=== PATIENT | male | born 1975 | race Caucasian/White ===

== ENCOUNTER 2017-10-01 20:56 | Emergency (ER) | payer OTHER ==
[2017-10-01] MEDS ORDERED: Aspirin TAB* 325 MG PO ONE (21:16)
[2017-10-01] MEDS ORDERED: Nitroglycerin TAB 0.4 MG* 0.4 MG TAB SL PRN (21:16)
[2017-10-01 21:57] LABS: ABS Basophils 0 10^3/ul (0-0.2); ABS Eosinophils 0.1 10^3/ul (0-0.6); ABS Lymphocytes 1.7 10^3/ul (1.0-4.8); ABS Monocytes 0.8 10^3/ul (0-0.8); ABS Neutrophils 4.3 10^3/ul (1.5-7.7); ABS Nucleated RBC 0 10^3/ul; Eosinophil % 0.8 % (0-6); Hematocrit 41 % (42-52); Hemoglobin 14.1 g/dl (14.0-18.0); Lymphocyte % 25.1 % (25-47); Mean Corpuscular HGB Conc 35 g/dl (31-36); Mean Corpuscular Hemoglobin 30 pg (27-31); Mean Corpuscular Volume 88 fL (80-94); Mean Platelet Volume 8.2 um3 (7.4-10.4); Nucleated Red Blood Cells % 0; Platelet Count 171 10^3/ul (150-450); Red Blood Count 4.62 10^6/ul (4.0-5.4); Red Cell Distribution Width 13 % (10.5-15); White Blood Count 6.9 10^3/ul (3.5-10.8)
[2017-10-01 22:18] LABS: EGFR Non-African American 126.4 (>60)
[2017-10-01] MEDS ORDERED: Ketorolac INJ* 30 MG/ML 1 ML VIAL IV PUSH ONE (23:20)
[2017-10-02 02:18] VITALS: BP 159/96
--- NOTE | 2017-10-02 07:15 | RAD ---
INDICATION: Chest pain. COMPARISON: There are no prior studies available for comparison. TECHNIQUE: A portable view of the chest was obtained. FINDINGS: Cardiac and mediastinal contours appear to be within normal limits. The lungs are clear. No pleural effusion is seen. IMPRESSION: NO EVIDENCE FOR ACUTE DISEASE.
--- NOTE | 2017-10-02 17:20 | ED ---
Domingo Villalobos Stephanie, scribed for Tomás Cruz MD on 10/01/17 at 2128 . HPI Chest Pain - HPI Summary HPI Summary: The pt is a 42 y/o M presenting to the ED with c/o CP that began at 20:00 today. Symptoms include lightheadedness, ASH, L jaw and L arm pain. The CP is described as sharp and is located on the L upper chest. The pt denies nausea. Aggravating factors include deep breaths. The CP is rated as an 8 in severity. Pt incarcerated today and symptoms started shortly after arrival in longterm. - History of Current Complaint Chief Complaint: EDChestPainROMI Time Seen by Provider: 10/01/17 21:02 Hx Obtained From: Patient Onset/Duration: Started Hours Ago - 1, Still Present Timing: Constant Current Severity: Moderate Pain Intensity: 8 Pain Scale Used: 0-10 Numeric Chest Pain Location: Left Anterior Chest Pain Radiates: Yes Chest Pain Radiates To:: Arm - L, Jaw - L Character: Sharp/Stabbing Aggravating Factor(s): Deep Breaths Alleviating Factor(s): Nothing Associated Signs and Symptoms: Positive: Headaches, Lightheadedness. Negative: Nausea - Allergy/Home Medications Allergies/Adverse Reactions: Allergies Allergy/AdvReac Type Severity Reaction Status Date / Time acetaminophen Allergy Swelling Verified 10/01/17 21:12 hydrocodone Allergy Hives Verified 10/01/17 21:12 Latex, Natural Rubber Allergy Hives Verified 10/01/17 21:12 meclizine Allergy Hives Verified 10/01/17 21:12 neomycin Allergy See Comment Verified 10/01/17 21:12 oxycodone Allergy Hives Verified 10/01/17 21:12 promethazine [From Phenergan] Allergy Swelling Verified 10/01/17 21:12 rifampin Allergy See Comment Verified 10/01/17 21:12 Sulfa (Sulfonamide Allergy See Comment Verified 10/01/17 21:12 Antibiotics) tamsulosin [From Flomax] Allergy See Comment Verified 10/01/17 21:12 tramadol [From Ultram] Allergy Hives Verified 10/01/17 21:12 Home Medications: Home Medications Albuterol Sulfate [Proventil Hfa] 108 mcg IN DAILY 10/01/17 [History Confirmed 10/01/17] Aspirin EC Low Dose* [Ecotrin EC Low Dose 81 MG*] 81 mg PO DAILY 10/01/17 [ History Confirmed 10/01/17] Atorvastatin* [Lipitor*] 10 mg PO BEDTIME 10/01/17 [History Confirmed 10/01/17] Fluticasone-Salmeterol 100-50* [Advair Diskus 100-50*] 1 puff INH BID 10/01/17 [ History Confirmed 10/01/17] Metoprolol Tartrate TAB* [Lopressor TAB*] 50 mg PO QAM 10/01/17 [History Confirmed 10/01/17] Mirtazapine TAB* [Remeron TAB*] 45 mg PO BEDTIME 10/01/17 [History Confirmed ] Prazosin CAP* [Minipress CAP*] 2 mg PO BEDTIME 10/01/17 [History Confirmed 10/01] Sucralfate TAB* [Carafate*] 1 gm PO QID 10/01/17 [History Confirmed 10/01/17] busPIRone TAB* [Buspar *] 20 - 30 mg PO BID 10/01/17 [History Confirmed 10/01/17 ] hydrOXYzine HCL TAB* [Atarax TAB 50 MG *] 100 mg PO BEDTIME 10/01/17 [History Confirmed 10/01/17] PMH/Surg Hx/FS Hx/Imm Hx Cardiovascular History: Reports: Hx Coronary Artery Disease, Hx Deep Vein Thrombosis, Hx Myocardial Infarction Musculoskeletal History: Reports: Other Musculoskeletal History - spinal stenosis Neurological History: Reports: Hx CVA, Hx Transient Ischemic Attacks (TIA) - Surgical History Surgery Procedure, Year, and Place: appendectomy, foot surgery Infectious Disease History: No Infectious Disease History: Denies: Traveled Outside the [place] in Last 30 Days - Family History Known Family History: Positive: Other - malignant hypothermia - Social History Occupation: Unemployed Lives: Halfway - correctional facility Review of Systems Negative: Fever Positive: Chest Pain - radiates to L jaw and L arm Negative: Nausea Neurological: Other - lightheadedness Positive: Headache All Other Systems Reviewed And Are Negative: Yes Physical Exam - Summary Physical Exam Summary: Appearance: Well-appearing, no distress, Well-nourished Skin: Warm, color reflects adequate perfusion Head: Normal Head/Face inspection Eyes: Conjunctiva clear ENT: Normal inspection Neck: Supple, no nodes, no JVD. Respiratory: Lungs clear, Normal breath sounds, no respiratory distress Cardio: RRR, No murmur, pulses normal, brisk capillary refill Abdomen: soft, nontender, no guarding, no rebound Bowel sounds: present Musculoskeletal: Strength Intact/ ROM intact. No calf tenderness. No edema. Neuro: Alert, muscle tone normal, facial symmetry, speech normal, sensory/motor intact Psychological: Normal Triage Information Reviewed: Yes Vital Signs On Initial Exam: Initial Vitals Temp Pulse Resp BP Pulse Ox 99.2 F 70 17 155/113 97 10/01/17 21:04 10/01/17 21:04 10/01/17 21:04 10/01/17 21:04 10/01/17 21:04 Vital Signs Reviewed: Yes Diagnostics - Vital Signs Vital Signs Temp Pulse Resp BP Pulse Ox 10/01/17 21:04 99.2 F 70 17 155/113 97 - Laboratory Lab Results: Lab Results 10/01/17 10/01/17 10/01/17 Range/Units 21:46 21:46 21:46 WBC 6.9 (3.5-10.8) 10^3/ul RBC 4.62 (4.0-5.4) 10^6/ul Hgb 14.1 (14.0-18.0) g/dl Hct 41 L (42-52) % MCV 88 (80-94) fL MCH 30 (27-31) pg MCHC 35 (31-36) g/dl RDW 13 (10.5-15) % Plt Count 171 (150-450) 10^3/ul MPV 8.2 (7.4-10.4) um3 Neut % (Auto) 61.9 (38-83) % Lymph % (Auto) 25.1 (25-47) % Summers % (Auto) 11.6 H (0-7) % Eos % (Auto) 0.8 (0-6) % Baso % (Auto) 0.6 (0-2) % Absolute Neuts (auto) 4.3 (1.5-7.7) 10^3/ul Absolute Lymphs (auto) 1.7 (1.0-4.8) 10^3/ul Absolute Monos (auto) 0.8 (0-0.8) 10^3/ul Absolute Eos (auto) 0.1 (0-0.6) 10^3/ul Absolute Basos (auto) 0 (0-0.2) 10^3/ul Absolute Nucleated RBC 0 10^3/ul Nucleated RBC % 0 Sodium 138 (133-145) mmol/L Potassium 4.0 (3.5-5.0) mmol/L Chloride 103 (101-111) mmol/L Carbon Dioxide 28 (22-32) mmol/L Anion Gap 7 (2-11) mmol/L BUN 10 (6-24) mg/dL Creatinine 0.69 (0.67-1.17) mg/dL Est GFR ( Amer) 162.5 (>60) Est GFR (Non-Af Amer) 126.4 (>60) BUN/Creatinine Ratio 14.5 (8-20) Glucose 108 H (70-100) mg/dL Calcium 9.9 (8.6-10.3) mg/dL Total Bilirubin 0.40 (0.2-1.0) mg/dL AST 19 (13-39) U/L ALT 31 (7-52) U/L Alkaline Phosphatase 67 (34-104) U/L Troponin I 0.00 (<0.04) ng/mL B-Natriuretic Peptide 15 ( - 100) pg/mL Total Protein 6.9 (6.4-8.9) g/dL Albumin 4.4 (3.2-5.2) g/dL Globulin 2.5 (2-4) g/dL Albumin/Globulin Ratio 1.8 (1-3) Result Diagrams: 10/01/17 21:46 10/01/17 21:46 Lab Statement: Any lab studies that have been ordered have been reviewed, and results considered in the medical decision making process. - Radiology CXR Xray Interpretation: No Acute Changes Radiology Interpretation Completed By: ED Physician - No acute disease process. Radiologist report pending. - EKG 21:00 Cardiac Rate: NL EKG Rhythm: Sinus Rhythm - 68 BPM EKG Interpretation: short MS interval, axis nml, no ST changes, T wave nml Re-Evaluation - Re-Evaluation First Eval Re-Evaluation Time: 23:20 Change: Worse Comment: Pt resting comfortably in bed. Pt states chest pain worsened. Will give dose IV analgesia and reevaluate. Second Eval Re-Evaluation Time: 01:40 Change: Improved Comment: Pt chest pain resolved. pt HEART score - 1; pt with atypical symptoms. pt will f/u wiht Cardiology as scheduled. Chest Pain Course/Dx - Course Assessment/Plan: pt with atypical chest with negative cardiac w/u. Plan for symptomatic tx and Cardiology f/u as outpt. - Chest Pain Differential Diagnosis/HQI/PQRI: Acute OH, ACS, Angina, Aortic Aneurysm, CHF, Pulmonary Edema, Pulmonary Embolism - Diagnoses Provider Diagnoses: Atypical chest pain Discharge - Sign-Out/Discharge Documenting (check all that apply): Discharge - Discharge Plan Condition: Improved Disposition: HOME Patient Education Materials: Chest Pain (ED) Referrals: Jeromy BOOGIE,Luis Silverman [Primary Care Provider] - 3 Days - Billing Disposition and Condition Condition: IMPROVED Disposition: HOME The documentation as recorded by the Domingo montiel Stephanie accurately reflects the service I personally performed and the decisions made by , Tomás Cruz MD.
== END 2017-10-02 02:18 | disposition home or self-care (01) ==
LOC: EDBD → ED 20:56
DX: R07.89 Other chest pain (principal); I25.10 Atherosclerotic heart disease of native coronary artery without angina pectoris; R51 Headache; R42 Dizziness and giddiness; Z95.5 Presence of coronary angioplasty implant and graft
CPT/HCPCS: 36415; 71045; 80053; 83880; 84484; 85025; 93005; 96374; 99283; J1885

== ENCOUNTER 2017-10-07 12:14 | Inpatient (IN) | payer MEDICAID, OTHER ==
[2017-10-07] MEDS ORDERED: Ondansetron INJ* 2 MG/ML VIAL IV ONE ×2 (12:39→16:15)
[2017-10-07] MEDS ORDERED: Morphine INJ* 4 MG/ML 1 ML SYRINGE (NEW SYRINGE VERSION) IV ONE (12:39)
[2017-10-07] MEDS ORDERED: NS 0.9% 1000 ML* 1,000 ML IV SCH (12:45)
--- NOTE | 2017-10-07 13:08 | RAD ---
INDICATION: Chest pain in a patient with a history of GA COMPARISON: Similar chest x-ray October 01, 2017 TECHNIQUE: Single AP portable view of the chest was obtained. FINDINGS: Image quality is compromised due to the relative inferiority of a portable chest x-ray. The heart and mediastinum exhibit normal size and contour. The lungs are grossly clear. There is no evidence of a large pleural effusion. Visualized bones are normal for the patient's age. IMPRESSION: No radiographic evidence for acute cardiopulmonary abnormality on this portable chest x-ray.
[2017-10-07 13:57] LABS: ABS Basophils 0 10^3/ul (0-0.2); ABS Eosinophils 0 10^3/ul (0-0.6); ABS Lymphocytes 0.7 10^3/ul (1.0-4.8); ABS Monocytes 0.9 10^3/ul (0-0.8); ABS Neutrophils 10.8 10^3/ul (1.5-7.7); ABS Nucleated RBC 0 10^3/ul; Eosinophil % 0 % (0-6); Hematocrit 38 % (42-52); Hemoglobin 12.6 g/dl (14.0-18.0); Mean Corpuscular HGB Conc 33 g/dl (31-36); Mean Corpuscular Hemoglobin 30 pg (27-31); Mean Corpuscular Volume 90 fL (80-94); Mean Platelet Volume 8.3 um3 (7.4-10.4); Nucleated Red Blood Cells % 0; Platelet Count 151 10^3/ul (150-450); Red Blood Count 4.23 10^6/ul (4.0-5.4); Red Cell Distribution Width 14 % (10.5-15); White Blood Count 12.4 10^3/ul (3.5-10.8)
[2017-10-07 14:10] LABS: EGFR Non-African American 160.8 (>60)
[2017-10-07] MEDS ORDERED: Iohexol 350* (CONTRAST) 500 ML MDV IV ONE (14:14)
--- NOTE | 2017-10-07 15:20 | RAD ---
CPT II: CPT II Codes: 6045F INDICATION: Head and neck pain in a patient reported to have "heart problem" COMPARISON: None TECHNIQUE: A CT angiogram of the head and neck was performed with 80 cc of Omnipaque 350. Contiguous axial sections were obtained from the thoracic inlet through the ho-chunk of Torres. Images were reconstructed in the sagittal, coronal planes and in a 3-D volume rendered format. The distal cervical internal carotid artery diameter is used as the denominater for stenosis measurement. CTA NECK: The common and internal carotid arteries are patent without hemodynamically significant stenosis. Right: Below the right carotid bulb the common carotid artery measures 8 mm in diameter. The carotid bulb measures 8 mm in short axis diameter. This yields 0% degree stenosis. There is no significant atherosclerosis of the carotid bulb. Left: Below the left carotid bulb the common carotid artery measures 9 mm in diameter. The carotid bulb measures 9 mm in short axis diameter. This yields 0% degree stenosis. There is no significant atherosclerosis of the carotid bulb. The vertebral arteries are patent without gross abnormality. CTA of the brain: The internal carotid, anterior and middle cerebral arteries appear are patent without high grade stenosis or occlusion. The vertebral, basilar and posterior cerebral arteries appear patent without high grade stenosis or occlusion. The ho-chunk of Torres is complete with bilateral posterior communicating arteries identified. No focal luminal filling defect, aneurysm or vascular malformation is seen. NON-ARTERIAL FINDINGS: There is nonspecific straightening of the normal cervical lordosis. The vertebral bodies and facet joints are otherwise appropriately aligned. IMPRESSION: Normal CT angiography of the head and neck.
--- NOTE | 2017-10-07 15:23 | RAD ---
HISTORY: Chest pain, history of Marfan syndrome COMPARISONS: None TECHNIQUE: Multiple contiguous axial CT scans of the chest were obtained after the administration of nonionic intravenous contrast, timed to the systemic arterial phase of contrast enhancement.. Coronal and sagittal multiplanar reformations are also submitted for review. 3-D volumetric reconstructions of the aorta are also submitted for review. FINDINGS: Evaluation is limited by suboptimal contrast opacification. NECK AND THYROID: The lower neck and thyroid are unremarkable. CHEST WALL: There is no lower cervical, axillary, or supraclavicular lymphadenopathy by size criteria. HEART AND PERICARDIUM: The heart is unremarkable. AORTA AND PULMONARY VASCULATURE: The aorta and pulmonary vasculature are normal for technique. There is no interstitial dilatation. There is no intimal flap to suggest dissection. There is no periaortic hematoma. While there is no obvious pulmonary arterial filling defect, the attenuation of the main pulmonary artery does not reach diagnostic criteria for detection of pulmonary blood.. MEDIASTINUM: There is no mediastinal lymphadenopathy by size criteria. KATHERINE: There is no hilar lymphadenopathy by size criteria. AIRWAY AND ESOPHAGUS: The airway is unremarkable, without endobronchial filling defect. The esophagus is grossly normal. LUNG PARENCHYMA: There is a 0.4 cm nodule of the left upper lobe on axial image 37. PLEURA: No pleural abnormalities are noted. UPPER ABDOMEN: The upper abdomen is unremarkable. BONES AND SOFT TISSUES: Mild degenerative changes are noted. OTHER: None. IMPRESSION: 1. NO AORTIC ANEURYSMAL DILATATION, INTIMAL FLAP, OR PERIAORTIC HEMATOMA. 2. THERE IS A 0.4 CM NODULE OF THE LEFT UPPER LOBE. THE RECOMMENDATIONS FOR FOLLOWUP AND MANAGEMENT OF AN INCIDENTALLY DETECTED PULMONARY NODULE LESS THAN 6 MM IN SIZE, IN A PATIENT WITHOUT A HISTORY OF MALIGNANCY, INCLUDE NO FOLLOWUP FOR A LOW-RISK PATIENT OR OPTIONAL FOLLOWUP CT IN 12 MONTHS FOR A HIGH RISK PATIENT. NOTES: SIZE = AVERAGE LENGTH AND WIDTH; HIGH RISK IS DEFINED A HISTORY OF SMOKING OR OTHER KNOW RISK FACTORS FOR LUNG CANCER; LOW RISK IS DEFINED MINIMAL OR ABSENT HISTORY OF SMOKING OR OTHER KNOWN RISK FACTORS. Katty Alva, MACHO Zapien, ROLANDO Rey, et al (2017) "Guidelines for Management of Incidental Pulmonary Nodules Detected on CT Images: From the Fleischner Society 2017." Radiology; 284(1): 228-243. doi:10.1148/radiol.4524787350 .
[2017-10-07] MEDS ORDERED: Morphine INJ* 2 MG/ML 1 ML CARPUJECT IV ONE (16:09)
[2017-10-07] MEDS ORDERED: Magnesium Sulfate 2 GM IV* 2 GM/50 ML BAG IVPB ONE (16:09)
[2017-10-07] MEDS ORDERED: Morphine INJ* 2 MG/ML 1 ML CARPUJECT ONE (16:10)
[2017-10-07] MEDS ORDERED: Potassium Chlor TAB* 20 MEQ TAB.ER PO ONE (16:10)
[2017-10-07] MEDS ORDERED: NS 0.9% 1000 ML* 2,000 ML IV ONE (16:10)
[2017-10-07] MEDS ORDERED: Ondansetron INJ* 2 MG/ML VIAL ONE (16:10)
[2017-10-07] MEDS ORDERED: Nitroglycerin 2% OINT* 1 GM PAK ONE (16:44)
[2017-10-07] MEDS ORDERED: Nitroglycerin 2% OINT* 1 GM PAK TOPICAL ONE (16:50)
[2017-10-07] MEDS ORDERED: Metoprolol Tartrate IV* 1 MG/ML 5 ML VIAL IV PRN (16:55)
[2017-10-07] MEDS ORDERED: Potassium Chloride IV* 40 MEQ in NS 0.9% 250 ML* 250 ML IVPB ONE (17:00)
[2017-10-07] MEDS ORDERED: KCL 10 MEQ/50 ML IVPREMIX* 10 MEQ/50 ML BAG IV SCH (17:00)
--- NOTE | 2017-10-07 17:27 | ED ---
Haryr Villalobos Gabriel, scribed for Jim Baird MD on 10/07/17 at 1243 . HPI Chest Pain - HPI Summary HPI Summary: This patient is a 42 year old M presenting to [facility] from [facility] accompanied by the retirement guards with a chief complaint of CP since 1000 this morning. The patient rates the pain 8/10 in severity and states it radiates into his arm and neck. Patient reports nausea, dizziness, light headed, ASH, diaphoresis, left leg edema and pain. Patient denies ABD pain. Pt has taken 4 baby ASA and 3 NTG with no relief. Hx CVA, 2 MIs, TIA, and DVT. - History of Current Complaint Chief Complaint: EDChestPainROMI Time Seen by Provider: 10/07/17 12:29 Hx Obtained From: Patient Onset/Duration: Started Hours Ago Time of Onset: 10:00 Initial Severity: Moderate Current Severity: Moderate Pain Intensity: 8 Pain Scale Used: 0-10 Numeric Chest Pain Location: Diffuse Chest Pain Radiates: Yes Chest Pain Radiates To:: Arm, Neck Alleviating Factor(s): Nothing Associated Signs and Symptoms: Positive: Negative - ABD pain, Other: - nausea, dizziness, light headed, ASH, diaphoresis, left leg edema and pain - Allergy/Home Medications Allergies/Adverse Reactions: Allergies Allergy/AdvReac Type Severity Reaction Status Date / Time acetaminophen Allergy Swelling Verified 10/01/17 21:12 hydrocodone Allergy Hives Verified 10/01/17 21:12 Latex, Natural Rubber Allergy Hives Verified 10/01/17 21:12 meclizine Allergy Hives Verified 10/01/17 21:12 neomycin Allergy See Comment Verified 10/01/17 21:12 oxycodone Allergy Hives Verified 10/01/17 21:12 promethazine [From Phenergan] Allergy Swelling Verified 10/01/17 21:12 rifampin Allergy See Comment Verified 10/01/17 21:12 Sulfa (Sulfonamide Allergy See Comment Verified 10/01/17 21:12 Antibiotics) tamsulosin [From Flomax] Allergy See Comment Verified 10/01/17 21:12 tramadol [From Ultram] Allergy Hives Verified 10/01/17 21:12 PMH/Surg Hx/FS Hx/Imm Hx Cardiovascular History: Reports: Hx Coronary Artery Disease, Hx Deep Vein Thrombosis, Hx Myocardial Infarction Musculoskeletal History: Reports: Other Musculoskeletal History - spinal stenosis Neurological History: Reports: Hx CVA, Hx Transient Ischemic Attacks (TIA) - Surgical History Surgery Procedure, Year, and Place: appendectomy, foot surgery Infectious Disease History: No Infectious Disease History: Denies: Traveled Outside the [place] in Last 30 Days - Family History Known Family History: Positive: Other - malignant hypothermia Negative: Respiratory Disease, Seizure Disorder - Social History Occupation: Unemployed Lives: Shelter - retirement Alcohol Use: None Substance Use Type: Reports: None Smoking Status (MU): Former Smoker Review of Systems Positive: Skin Diaphoresis Positive: Nausea. Negative: Abdominal Pain Positive: Edema - LLE and pain Neurological: Other - dizziness and light headedness Positive: Headache All Other Systems Reviewed And Are Negative: Yes Physical Exam - Summary Physical Exam Summary: General: well-appearing, no pain distress Skin: warm, color reflects adequate perfusion, dry Head: normal Eyes: EOMI, RYAN ENT: normal Neck: supple, nontender Respiratory: CTA, breath sounds present Cardiovascular: RRR Abdomen: soft, nontender Bowel: present Musculoskeletal: normal, strength/ROM intact Neurological: normal, sensory/motor intact, A&O x3 Psychological: affect/mood appropriate Triage Information Reviewed: Yes Vital Signs On Initial Exam: Initial Vitals Temp Pulse Resp BP Pulse Ox 99.2 F 111 21 135/86 97 10/07/17 12:25 10/07/17 12:25 10/07/17 12:25 10/07/17 12:25 10/07/17 12:25 Vital Signs Reviewed: Yes Diagnostics - Vital Signs Vital Signs Temp Pulse Resp BP Pulse Ox 10/07/17 12:25 99.2 F 111 21 135/86 97 - Laboratory Lab Results: Lab Results 10/07/17 10/07/17 10/07/17 Range/Units 13:40 13:40 13:40 WBC (3.5-10.8) 10^3/ul RBC (4.0-5.4) 10^6/ul Hgb (14.0-18.0) g/dl Hct (42-52) % MCV (80-94) fL MCH (27-31) pg MCHC (31-36) g/dl RDW (10.5-15) % Plt Count (150-450) 10^3/ul MPV (7.4-10.4) um3 Neut % (Auto) (38-83) % Lymph % (Auto) (25-47) % Whiteside % (Auto) (0-7) % Eos % (Auto) (0-6) % Baso % (Auto) (0-2) % Absolute Neuts (auto) (1.5-7.7) 10^3/ul Absolute Lymphs (auto) (1.0-4.8) 10^3/ul Absolute Monos (auto) (0-0.8) 10^3/ul Absolute Eos (auto) (0-0.6) 10^3/ul Absolute Basos (auto) (0-0.2) 10^3/ul Absolute Nucleated RBC 10^3/ul Nucleated RBC % INR (Anticoag Therapy) 1.10 H (0.77-1.02) APTT 25.5 L (26.0-36.3) seconds D-Dimer, Quantitative < 200 (Less Than 230) ng/mL Sodium 141 (139-145) mmol/L Potassium 2.8 L (3.5-5.0) mmol/L Chloride 106 (101-111) mmol/L Carbon Dioxide 25 (22-32) mmol/L Anion Gap 10 (2-11) mmol/L BUN 10 (6-24) mg/dL Creatinine 0.56 L (0.67-1.17) mg/dL Est GFR ( Amer) 206.8 (>60) Est GFR (Non-Af Amer) 160.8 (>60) BUN/Creatinine Ratio 17.9 (8-20) Glucose 124 H (70-100) mg/dL Lactic Acid (0.5-2.0) mmol/L Calcium 8.6 (8.6-10.3) mg/dL Magnesium 1.6 L (1.9-2.7) mg/dL Total Bilirubin 0.20 (0.2-1.0) mg/dL AST 20 (13-39) U/L ALT 25 (7-52) U/L Alkaline Phosphatase 55 (34-104) U/L Total Creatine Kinase 186 (10-223) U/L CK-MB (CK-2) 1.5 (0.6-6.3) ng/mL Troponin I 0.00 (<0.04) ng/mL C-Reactive Protein 3.92 (< 5.00) mg/L B-Natriuretic Peptide 26 ( - 100) pg/mL Total Protein 5.9 L (6.4-8.9) g/dL Albumin 3.6 (3.2-5.2) g/dL Globulin 2.3 (2-4) g/dL Albumin/Globulin Ratio 1.6 (1-3) Lipase 25 (11.0-82.0) U/L TSH 1.82 (0.34-5.60) mcIU/mL Blood Type Antibody Screen 10/07/17 10/07/17 10/07/17 Range/Units 13:40 13:40 13:40 WBC 12.4 H (3.5-10.8) 10^3/ul RBC 4.23 (4.0-5.4) 10^6/ul Hgb 12.6 L (14.0-18.0) g/dl Hct 38 L (42-52) % MCV 90 (80-94) fL MCH 30 (27-31) pg MCHC 33 (31-36) g/dl RDW 14 (10.5-15) % Plt Count 151 (150-450) 10^3/ul MPV 8.3 (7.4-10.4) um3 Neut % (Auto) 86.9 H (38-83) % Lymph % (Auto) 6.0 L (25-47) % Whiteside % (Auto) 6.9 (0-7) % Eos % (Auto) 0 (0-6) % Baso % (Auto) 0.2 (0-2) % Absolute Neuts (auto) 10.8 H (1.5-7.7) 10^3/ul Absolute Lymphs (auto) 0.7 L (1.0-4.8) 10^3/ul Absolute Monos (auto) 0.9 H (0-0.8) 10^3/ul Absolute Eos (auto) 0 (0-0.6) 10^3/ul Absolute Basos (auto) 0 (0-0.2) 10^3/ul Absolute Nucleated RBC 0 10^3/ul Nucleated RBC % 0 INR (Anticoag Therapy) (0.77-1.02) APTT (26.0-36.3) seconds D-Dimer, Quantitative (Less Than 230) ng/mL Sodium (139-145) mmol/L Potassium (3.5-5.0) mmol/L Chloride (101-111) mmol/L Carbon Dioxide (22-32) mmol/L Anion Gap (2-11) mmol/L BUN (6-24) mg/dL Creatinine (0.67-1.17) mg/dL Est GFR ( Amer) (>60) Est GFR (Non-Af Amer) (>60) BUN/Creatinine Ratio (8-20) Glucose (70-100) mg/dL Lactic Acid 3.9 H* (0.5-2.0) mmol/L Calcium (8.6-10.3) mg/dL Magnesium (1.9-2.7) mg/dL Total Bilirubin (0.2-1.0) mg/dL AST (13-39) U/L ALT (7-52) U/L Alkaline Phosphatase (34-104) U/L Total Creatine Kinase (10-223) U/L CK-MB (CK-2) (0.6-6.3) ng/mL Troponin I (<0.04) ng/mL C-Reactive Protein (< 5.00) mg/L B-Natriuretic Peptide ( - 100) pg/mL Total Protein (6.4-8.9) g/dL Albumin (3.2-5.2) g/dL Globulin (2-4) g/dL Albumin/Globulin Ratio (1-3) Lipase (11.0-82.0) U/L TSH (0.34-5.60) mcIU/mL Blood Type A Negative Antibody Screen Negative Result Diagrams: 10/07/17 13:40 10/07/17 13:40 Lab Statement: Any lab studies that have been ordered have been reviewed, and results considered in the medical decision making process. - Radiology CXR Radiology Interpretation Completed By: Radiologist - No radiographic evidence for acute cardiopulmonary abnormality on this portable chest x-ray. ED physician has reviewed this radiology report. - CT CTA Chest CT Interpretation Completed By: Radiologist - 1. NO AORTIC ANEURYSMAL DILATATION, INTIMAL FLAP, OR PERIAORTIC HEMATOMA. 2. THERE IS A 0.4 CM NODULE OF THE LEFT UPPER LOBE. THE RECOMMENDATIONS FOR FOLLOWUP AND MANAGEMENT OF AN INCIDENTALLY DETECTED PULMONARY NODULE LESS THAN 6 MM IN SIZE, IN A PATIENT WITHOUT A HISTORY OF MALIGNANCY, INCLUDE NO FOLLOWUP FOR A LOW-RISK PATIENT OR OPTIONAL FOLLOWUP CT IN 12 MONTHS FOR A HIGH RISK PATIENT. NOTES: SIZE = AVERAGE LENGTH AND WIDTH; HIGH RISK IS DEFINED A HISTORY OF SMOKING OR OTHER KNOW RISK FACTORS FOR LUNG CANCER; LOW RISK IS DEFINED MINIMAL OR ABSENT HISTORY OF SMOKING OR OTHER KNOWN RISK FACTORS. ED physician reviewed this radiology report. CTA Head/Neck CT Interpretation: No Acute Changes - Normal CT angiography of the head and neck. ED physician reviewed this radiology report. CT Interpretation Completed By: Radiologist - EKG 1218 Cardiac Rate: Tachycardia EKG Rhythm: Sinus Tachycardia - at 108 BPM Ectopy: None EKG Interpretation: ST depression in the lateral leads Chest Pain Course/Dx - Course Assessment/Plan: Medications reviewed. Allergies noted. BP noted and advised to follow up with PCP. - Diagnoses Provider Diagnoses: Chest pain Discharge - Sign-Out/Discharge Documenting (check all that apply): Discharge - Discharge Plan Condition: Good Disposition: ADMITTED TO [facility] - Billing Disposition and Condition Condition: GOOD Disposition: [facility] [place] The documentation as recorded by the Harry montiel Gabriel accurately reflects the service I personally performed and the decisions made by , Jim Baird MD.
[2017-10-07] MEDS: Sucralfate TAB* 1 GM PO SCH ×2 (18:33→21:07)
[2017-10-07] MEDS: NS 0.9% w/ 20 Meq KCL 1000 ML* 1,000 ML IV SCH (18:37)
[2017-10-07] MEDS ORDERED: Ondansetron INJ* 2 MG/ML VIAL IV SCH (19:00)
[2017-10-07] MEDS: Mometasone/Formoter 100/5 MDI INH SCH (19:27)
[2017-10-07] MEDS ORDERED: Nitro Patch/OINT Remove PATCH OFF SCH (20:00)
[2017-10-07] MEDS: Morphine INJ* 4 MG/ML 1 ML SYRINGE (NEW SYRINGE VERSION) IV PRN (21:06)
[2017-10-07] MEDS: Ondansetron INJ* 2 MG/ML VIAL IV PRN (21:07)
[2017-10-07] MEDS: Mirtazapine TAB* 15 MG PO SCH (21:07)
[2017-10-07] MEDS: Atorvastatin* 10 MG TAB PO SCH (21:07)
[2017-10-07] MEDS: busPIRone TAB* 10 MG PO SCH (21:07)
[2017-10-07] MEDS: hydrOXYzine HCL TAB* 50 MG PO SCH (21:07)
[2017-10-07] MEDS: Prazosin CAP* 1 MG PO SCH (21:07)
--- NOTE | 2017-10-07 21:15 | HP ---
ADMISSION HISTORY AND PHYSICAL: DATE OF ADMISSION: 10/07/17 PRIMARY CARE PHYSICIAN: Clinic at [facility]. MY ATTENDING FOR TODAY: Lady Doty DO HISTORY OF PRESENT ILLNESS: This is a 42-year-old male patient, an inmate at [facility], with very significant cardiac history. The patient has had IL x2 most recently in 2005 and 2014. He also had CVA in July of 2017, TIA in the past, most recently in 2015, 2016, heart failure and coronary artery disease. The patient has... DICTATION ENDS ABRUPTLY HERE HEAVENLY RON, [employer]PER[employer] [id number]/CPS #: [id number] EUN
--- NOTE | 2017-10-07 21:41 | HP ---
ADMISSION HISTORY AND PHYSICAL: DATE OF ADMISSION: 10/07/17 PRIMARY CARE PHYSICIAN: Clinic at [facility]. ATTENDING PHYSICIAN FOR TODAY: Dr. Lady Doty.* (DICTATED BY HEAVELNY RON NP) HISTORY OF PRESENT ILLNESS: This is a 42-year-old male patient with a history of Marfan syndrome. The patient reports having two SC's, one in 2005 and one in 2014; CVA in July of 2017; TIA x2, one in 2015 and one in 2016; diagnosed with heart failure when he was initially diagnosed with Marfan syndrome at age 13; has coronary artery disease; history of asthma; DVT in November of 2014; patent foramen ovale diagnosed on his last echocardiogram; diverticulosis; spinal stenosis; anxiety; PTSD, degenerative disk disease; osteoarthritis. The patient presented with complaint of chest pain this morning radiating up to the left jaw. The patient states yesterday he felt like he had fever and chills and went to bed early. He just had some general malaise, but then woke up this morning with chest pain, sharp in nature and again radiating to the jaw. He was brought in by EMS services. He had 2 nitro at the clinic at the care home with no relief, he had an additional nitro and 324 of aspirin with paramedics on the way to the emergency department, still with no relief. CAT scan of the chest reveals he was not having a dissection. Structures are intact , he does not appear to have pleural effusion. However, the patient still is having persistent chest pain at this point. His EKG reveals significant amount of ST-segment depression. He is depressed in leads II, III, and aVF diffusely. Also, has some flattening in the anterolateral leads as well. First troponin was negative at 0.00. The patient received 2 mg of morphine, 4 mg of Zofran as well for his refractory chest pain, and is also placed on oxygen 2 L. Pain remained persistent since arriving at the emergency department. MEDICATIONS: At home, include: 1. Aspirin 81 mg daily. 2. Metoprolol 50 mg daily. 3. Lipitor 10 mg daily. 4. Ventolin 1 puff 2 times a day. 5. Carafate 1 g 4 times a day. 6. Prazosin 2 mg daily. 7. Remeron 45 mg daily. 8. Vistaril 100 mg q.h.s. 9. BuSpar 20 mg 2 times a day. DIAGNOSTIC STUDIES/LAB DATA: Laboratories showed some other abnormalities; WBCs were 12.4, RBCs 4.23, hemoglobin 12.6, hematocrit 38, and platelets 151. He does appear to have a left shift. Sodium 141, potassium 2.8, chloride 106, carbon dioxide 25, BUN 10, creatinine 0.56, GFR is 160.8, glucose 124, lactic acid 3.9, calcium 8.6, mag 1.6. Total bilirubin 0.20, AST 20, ALT 25, alk phos 55. Total creatinine kinase 186, CK-MB is 1.5. Second troponin is also negative at 0.00, which was just drawn at 3:30. CRP is 3.92. BNP is 26. Total protein 5.9, albumin 3.6, globulin 2.3, lipase 25. TSH is 1.82. CT of the chest again reveals no acute findings. He is not having aneurysm or dissection. Chest x-ray is negative for acute cardiopulmonary process. IMPRESSION AND PLAN: This is a 42-year-old male patient with history of Marfan syndrome and complex coronary artery disease in the past presenting with EKG changes to rule out acute coronary syndrome. At this point, the patient has initially been admitted to observation. He will be n.p.o. after midnight. We will give him 1 inch of nitroglycerin paste. Also, of note, he has some diastolic hypertension, diastolic numbers are in the low 100s at this point. Hopefully, we will reduce preload and afterload with some nitrates. He has been tachycardic; however, if we are going to in the morning I would prefer not to give him beta blockers at this time, so we will just continue to monitor him on telemetry. We may be able to give him 5 mg of Lopressor IV for control for tonight and then hold beta blockers in the morning. We will continue to trend the troponins, next one will be due at 6:30 and then again at 9:30. We will continue his Lipitor, Advair, Carafate, prazosin, Vistaril, BuSpar, Remeron, and aspirin. The patient is also having a mild temperature at 99.0, was given some fluids on arrival. We will continue his fluids with 20 mEq of potassium. Also, of significant note, the potassium was very low at 2.8. Given his cardiac history, this is dangerous for him. He has been given 40 mEq of potassium by mouth and will have K riders. We will recheck lytes in the morning. Also, the magnesium was low at 1.6. He has gotten 2 g of mag sulfate. Again, we will check the magnesium in the morning as well. Again, the patient has been admitted for observation. We will keep him n.p.o. after midnight in anticipation of nuclear stress test in the morning. Given his extensive history and EKG changes, which I have nothing to compare to. We may also consider a Cardiology consult in the morning and also depending on the results of his stress test. The rest of the patient's course will be determined by further diagnostics, laboratories, and any other input from other providers as warranted during this admission. For DVT prophylaxis, the patient can have heparin 5000 q.8. He is a full code. This plan of care has been discussed with Dr. Lady Doty, who is in agreement. HEAVENLY RON, [employer] COORDINATOR [id number]/[facility] #: [id number] EUN
[2017-10-07] MEDS: Enoxaparin(*) 40 MG/0.4 ML SYR SUBCUT SCH (23:48)
[2017-10-08] MEDS: Ondansetron INJ* 2 MG/ML VIAL IV PRN ×5 (01:25→20:44)
[2017-10-08] MEDS: Morphine INJ* 4 MG/ML 1 ML SYRINGE (NEW SYRINGE VERSION) IV PRN ×5 (01:25→20:45)
[2017-10-08 05:46] LABS: ABS Basophils 0 10^3/ul (0-0.2); ABS Eosinophils 0 10^3/ul (0-0.6); ABS Lymphocytes 1.3 10^3/ul (1.0-4.8); ABS Monocytes 0.7 10^3/ul (0-0.8); ABS Neutrophils 5.5 10^3/ul (1.5-7.7); ABS Nucleated RBC 0 10^3/ul; Eosinophil % 0 % (0-6); Hematocrit 31 % (42-52); Hemoglobin 10.7 g/dl (14.0-18.0); Lymphocyte % 17.5 % (25-47); Mean Corpuscular HGB Conc 34 g/dl (31-36); Mean Corpuscular Hemoglobin 30 pg (27-31); Mean Corpuscular Volume 89 fL (80-94); Mean Platelet Volume 8.8 um3 (7.4-10.4); Nucleated Red Blood Cells % 0; Platelet Count 126 10^3/ul (150-450); Red Blood Count 3.51 10^6/ul (4.0-5.4); Red Cell Distribution Width 14 % (10.5-15); White Blood Count 7.5 10^3/ul (3.5-10.8)
[2017-10-08 06:06] LABS: EGFR Non-African American 157.5 (>60)
[2017-10-08] MEDS: Mometasone/Formoter 100/5 MDI INH SCH ×2 (08:35→19:52)
[2017-10-08] MEDS ORDERED: Aspirin EC TAB* 81 MG TAB.EC PO SCH (09:00)
[2017-10-08] MEDS ORDERED: Albuterol HFA INHALER* 8 gm MDI INH PRN (09:00)
[2017-10-08] MEDS: Nitroglycerin 2% OINT* 1 GM PAK TOPICAL SCH ×2 (10:26→14:45)
[2017-10-08] MEDS ORDERED: Regadenoson* 0.4 MG/5 ML SYRINGE ONE (13:11)
--- NOTE | 2017-10-08 13:18 | CONSULT ---
Subjective Date of Service: 10/08/17 Interval History: Admission Date: 10/07/17 Consult date 10/08/2017 PRIMARY CARE PHYSICIAN: Clinic at [facility]. Service: Hospitalist CC: Chest pain Reason for consult: Chest pain HISTORY OF PRESENT ILLNESS: Rg Arroyo is a 42-year-old man with a complex history as below, I do not have prior records to confirm history given and some elements of history were taken from H+P. He recently transferred to the [facility] facility from a different one. He had felt malaise and fever earlier this week. He has had no obvious viral illness but has had GI upset since 06/2017. He sometimes does pushups in his cell but not for the last 3 days. He does use a cane with the right hand to walk since his CVA 07/2017. He states he was watching TV yesterday AM and developed sharp pain radiating to left neck and inside of upper left arm. It is sharp and pleuritic with no real change in position. It is not reproducible in palpation. On certain positions it can almost be dissipated but easy to reproduce with having him take a deep breath. It has not responded to nitroglycerin. He was here [facility] 10/01/2017 with similar symptoms. Pmhx: - Diagnosed with both an FL and Marfan's syndrome at age 13 (uncertain how either was diagnosed) - Diagnosed with FL in 2005 (uncertain how diagnosed, has never had an angiogram ) - TIA 2015 and 2016, CVA 07/2017 with left sided weakness now uses a cane. He is unsure of the brain MRI results and we do not have this available to review. - GI bleed 06/2017 states was throwing up blood, had EGD, multiple ulcers and treated for a fungal infection. - history of asthma - DVT in November of 2014 - patent foramen ovale diagnosed on his last echocardiogram; - diverticulosis - spinal stenosis - anxiety - PTSD, family hx: grandfather with marfan's, of "heart attack" at age 68 or 69 soc hx: 1/2 ppd smoking history, no etoh or drugs Allergies Allergy/AdvReac Type Severity Reaction Status Date / Time acetaminophen Allergy Swelling Verified 10/01/17 21:12 hydrocodone Allergy Hives Verified 10/01/17 21:12 Latex, Natural Rubber Allergy Hives Verified 10/01/17 21:12 meclizine Allergy Hives Verified 10/01/17 21:12 neomycin Allergy See Comment Verified 10/01/17 21:12 oxycodone Allergy Hives Verified 10/01/17 21:12 promethazine [From Phenergan] Allergy Swelling Verified 10/01/17 21:12 rifampin Allergy See Comment Verified 10/01/17 21:12 Sulfa (Sulfonamide Allergy See Comment Verified 10/01/17 21:12 Antibiotics) tamsulosin [From Flomax] Allergy See Comment Verified 10/01/17 21:12 tramadol [From Ultram] Allergy Hives Verified 10/01/17 21:12 Medications Active Medications: Albuterol (Ventolin Hfa Inhaler*) 2 puff INH Q4H PRN PRN Reason: SOB/WHEEZING Aspirin (Aspirin Ec Low Dose*) 81 mg PO DAILY [facility] Atorvastatin Calcium (Lipitor*) 10 mg PO BEDTIME [facility] Last Admin: 10/07/17 21:07 Dose: 10 mg Buspirone HCl (Buspar Tab*) 20 mg PO BID [facility] Last Admin: 10/07/17 21:07 Dose: 20 mg Enoxaparin Sodium (Lovenox(*)) 40 mg SUBCUT Q24H [facility] Last Admin: 10/07/17 23:48 Dose: 40 mg Hydroxyzine HCl (Atarax Tab*) 100 mg PO BEDTIME [facility] Last Admin: 10/07/17 21:07 Dose: 100 mg Potassium Chloride/Sodium Chloride (Ns 0.9% W/ 20 Meq Kcl 1000 Ml*) 1,000 mls @ 75 mls/hr IV PER RATE [facility] Last Admin: 10/07/17 18:37 Dose: 75 mls/hr Metoprolol Tartrate (Lopressor Iv*) 5 mg IV Q6H PRN PRN Reason: TACHYCARDIA Mirtazapine (Remeron Tab*) 45 mg PO BEDTIME [facility] Last Admin: 10/07/17 21:07 Dose: 45 mg Mometasone Furoate/Formoterol Fumar (Dulera 100/5 Mdi*) 2 puff INH BID [facility] Last Admin: 10/08/17 08:35 Dose: 2 puff Morphine Sulfate (Morphine Inj (Syringe)*) 4 mg IV Q4H PRN PRN Reason: PAIN Last Admin: 10/08/17 09:56 Dose: 4 mg Nitroglycerin (Nitroglycerin 2% Oint*) 1 inch TOPICAL 0800,1400 [facility] PRN Reason: Protocol Last Admin: 10/08/17 10:26 Dose: 1 inch Ondansetron HCl (Zofran Inj*) 4 mg IV Q4H PRN PRN Reason: NAUSEA Last Admin: 10/08/17 09:57 Dose: 4 mg Pharmacy Profile Note (Nitro Patch/Oint Remove*) 1 note PATCH OFF 1999 [facility] Last Admin: 10/07/17 21:21 Dose: 1 patch Prazosin HCl (Minipress Cap*) 2 mg PO BEDTIME [facility] Last Admin: 10/07/17 21:07 Dose: 2 mg Sucralfate (Carafate*) 1 gm PO QID [facility] Last Admin: 10/07/17 21:07 Dose: 1 gm Home Medications: Albuterol Sulfate [Proventil Hfa] 108 mcg IN DAILY 10/01/17 [History Confirmed 10/07/17] Aspirin EC Low Dose* [Ecotrin EC Low Dose 81 MG*] 81 mg PO DAILY 10/01/17 [ History Confirmed 10/07/17] Atorvastatin* [Lipitor*] 10 mg PO BEDTIME 10/01/17 [History Confirmed 10/07/17] Fluticasone-Salmeterol 100-50* [Advair Diskus 100-50*] 1 puff INH BID 10/01/17 [ History Confirmed 10/07/17] Metoprolol Tartrate TAB* [Lopressor TAB*] 50 mg PO QAM 10/01/17 [History Confirmed 10/07/17] Mirtazapine TAB* [Remeron TAB*] 45 mg PO BEDTIME 10/01/17 [History Confirmed ] Prazosin CAP* [Minipress CAP*] 2 mg PO BEDTIME 10/01/17 [History Confirmed 10/07] Sucralfate TAB* [Carafate*] 1 gm PO QID 10/01/17 [History Confirmed 10/07/17] busPIRone TAB* [Buspar *] 20 - 30 mg PO BID 10/01/17 [History Confirmed 10/07/17 ] hydrOXYzine HCL TAB* [Atarax TAB 50 MG *] 100 mg PO BEDTIME 10/01/17 [History Confirmed 10/07/17] Omeprazole 20 mg PO QAM 10/07/17 [History Confirmed 10/07/17] Review of Systems - Measurements Intake and Output: Intake and Output Last 24 Hours 10/06/17 10/07/17 10/08/17 10/09/17 06:59 06:59 06:59 06:59 Intake Total 1675 Output Total 1625 1575 Balance 50 -1575 Weight 267 lb 11.2 oz Intake: IV Fluids 1325 KCL in Sterile Water 270 Magnesium Sulfate 55 Oral 350 Output: Urine 1625 1575 Other: # Bowel Movements 0 # Voids 0 1 - Review of Systems Constitutional Symptoms: Positive: Weakness, Fever Negative: Weight Gain, Weight Loss, Fatigue Dermatology: Negative: Rash, Skin Lesions HEENT: Negative: Change in Hearing, Vertigo, Dental Problems, Tinnitus Eyes: Negative: Change in Vision, Double Vision Thyroid: Negative: Cold Intolerance, Heat Intolerance, Primary Hypothyroidism, Primary Hyperthyroidism, Change in Skin/Hair, Change in Menstration Pulmonary: Negative: Cough, Sputum, Hemoptysis, Wheezing, Respiratory Distress, Shortness of Breath, COPD, Asthma, Exercise Intolerance, Home Oxygen Cardiology: Positive: Chest Pain Negative: Shortness of Breath, Palpitations, Swelling of Ankles, Peripheral Vascular Dis, Edema, Faintness, Syncope Gastroenterology: Positive: Nausea, Indigestion, Diarrhea Negative: Vomiting, Anorexia, Difficulty Swallowing, Heartburn, Constipation , Blood in Stools, Change in Bowel Habits, Haematemesis, Melena Genital - Urinary: Negative: Dysuria, Hematuria, Nocturia Genitourinay - Female: Negative: Vaginal Discharge, Menopause, Dysmenorrhea Genitourinary - Male: Negative: Erectile Dysfunction Musculoskeletal: Negative: Joint Pain, Joint Stiffness Endocrinology: Negative: Thyroid Problems, Obesity, Diabetes, Hyperglycemia, Hypoglycemia, Diabetic Foot Ulcers, Polydipsia, Polyuria Hematologic/Lymphatic: Negative: Hx Leukemia, Hx Lymphoma Neurology: Negative: Headaches, Migraines, Change in Vision, Diplopia, Dizziness, Change in Balancing, Change in Coordination, Change in Memory, Hx of Stroke\\TIA , Hx Seizures Psychiatry: Negative: Unusual Anxiety, Suicidal Ideation Allergic/Immunologic: Negative: Hx Anaphylaxis, Hx Angioedema, Hx Environmental Allergies, Hx Seasonal Allergies, Hx HIV, Immunocompromise Review of Systems Statement: All other review of systems negative, unless stated above. Objective Vital Signs: Temp Pulse Resp BP Pulse Ox 97.8 F 73 12 104/50 99 10/08/17 04:02 10/08/17 08:38 10/08/17 09:56 10/08/17 04:02 10/08/17 08:38 Oxygen Devices in Use Now: Nasal Cannula Appearance: nad, pleasant, very tall Ears/Nose/Mouth/Throat: Clear Oropharnyx, Mucous Membranes Moist Neck: Trachea Midline Respiratory: Symmetrical Chest Expansion and Respiratory Effort, Clear to Auscultation Cardiovascular: NL Sounds; No Murmurs; No JVD, RRR, No Edema Abdominal: NL Sounds; No Tenderness; No Distention Extremities: No Edema Skin: No Rash or Ulcers Neurological: Alert and Oriented x 3 Laboratory Results: 10/08/17 05:00 10/08/17 05:00 INR (Anticoag Therapy) 1.10 (0.77-1.02) H 10/07/17 13:40 APTT 25.5 seconds (26.0-36.3) L 10/07/17 13:40 Total Bilirubin 0.20 mg/dL (0.2-1.0) 10/08/17 05:00 AST 13 U/L (13-39) 10/08/17 05:00 ALT 19 U/L (7-52) 10/08/17 05:00 Alkaline Phosphatase 45 U/L (34-104) 10/08/17 05:00 CK-MB (CK-2) 1.5 ng/mL (0.6-6.3) 10/07/17 13:40 B-Natriuretic Peptide 26 pg/mL (-100) 10/07/17 13:40 Total Protein 5.1 g/dL (6.4-8.9) L 10/08/17 05:00 Albumin 3.1 g/dL (3.2-5.2) L 10/08/17 05:00 Globulin 2.0 g/dL (2-4) 10/08/17 05:00 Albumin/Globulin Ratio 1.6 (1-3) 10/08/17 05:00 TSH 1.82 mcIU/mL (0.34-5.60) 10/07/17 13:40 10/07/17 10/07/17 10/07/17 13:40 15:50 22:29 Troponin I 0.00 0.00 0.01 wbc 12.4 initially crp 8.57, esr 10 Diagnostic Imaging: CTA 10/07/2017 of the chest again reveals no acute findings. No aneurysm or dissection Chest x-ray is negative for acute cardiopulmonary process. Lexiscan stress MPI 10/08/2017: Bowel loop against inferior wall on non-AC images with fixed defect and normal wall motion on cine images that resolves on attentuation correction suggesting of no defect of fixed or reversible nature. EKG Data: tele: brief svt ekg 10/08/2017: NSR, nomal ekg ekg 10/07/2017 sinus tachycardia 108 bpm, with st depression widespread consider rate related Assessment/Plan This is a 42-year-old man with a complicated Pmhx as above presents with pleuritic chest pain in the setting of a recent febrile illness. No evidence of ACS. - I think main differential here is musculoskeletal pain vs. pleuritis vs. pericarditis (although no ST elevation or pericardial effusion noted on CT scan and ESR normal at 10) to go along with this. Regardless, all three conditions should respond to high dose NSAIDs. Given his complicated cardiovascular history would use aspirin 650 mg po tid with food and PPI x 3 days then bid for 5 days then once daily for 5 days. I would check with his prior GI physician prior to starting this. Given his ongoing GI symptoms and I am not entirely convinced this is definitely pericarditis, I would not use colchicine at this time. Patient was counseled that if he does not quit smoking immediately, he remains at elevated risk even in the short term of things including but not limited to FL, recurrent stroke and . He expressed understanding of this. Thank you for allowing me to participate in the cardiovascular care of this patient. Please do not hesitate to contact me with questions or concerns
--- NOTE | 2017-10-08 14:26 | RAD ---
INDICATION: Chest pain COMPARISON: None TECHNIQUE: A single day SPECT protocol was utilized. Rest images were acquired following the intravenous injection of 10.4 millicuries of technetium 99m tetrofosmin. Pharmacologic stress images were acquired following the intravenous administration of 25.5 millicuries of technetium 99m tetrofosmin. FINDINGS: There is mildly decreased activity in the inferior wall and the apex but there is more activity on the stress than the rest images suggesting other fixed defect are artifact. Similar findings may be related to body size. The cardiac chamber size is normal. There are no wall motion abnormalities. The ejection fraction is calculated at 67 percent during stress. IMPRESSION: NO STRESS-INDUCED ISCHEMIA. NORMAL WALL MOTION AND CONTRACTILITY ASSESSMENT: LOW-RISK Based on imaging criteria from ACC/AHA 2002 Guideline Update for the Management of Patients With Chronic Stable Angina Table 23. Noninvasive Risk Stratification. Reference. HIGH-RISK (GREATER THAN 3% ANNUAL MORTALITY RATE) - Severe resting left ventricular dysfunction (LVEF < 35%) - Severe exercise left ventricular dysfunction (exercise LVEF < 35%) - Stress-induced large perfusion defect (particularly if anterior) - Stress-induced multiple perfusion defects of moderate size - Large, fixed perfusion defect with LV dilation or increased lung uptake (thallium-201) - Stress-induced moderate perfusion defect with LV dilation or increased lung uptake (thallium-201) INTERMEDIATE-RISK (1%-3% ANNUAL MORTALITY RATE) - Mild/moderate resting left ventricular dysfunction (LVEF = 35% to 49%) - Stress-induced moderate perfusion defect without LV dilation or increased lung intake (thallium-201) LOW-RISK (LESS THAN 1% ANNUAL MORTALITY RATE) - Normal or small myocardial perfusion defect at rest or with stress
[2017-10-08] MEDS: NS 0.9% w/ 20 Meq KCL 1000 ML* 1,000 ML IV SCH (15:30)
[2017-10-08] MEDS ORDERED: Omeprazole CAP* 20 MG PO SCH (15:39)
[2017-10-08] MEDS: Sucralfate TAB* 1 GM PO SCH ×3 (15:45→20:43)
[2017-10-08] MEDS: busPIRone TAB* 10 MG PO SCH ×2 (15:45→20:44)
--- NOTE | 2017-10-08 15:58 | PN ---
Subjective Date of Service: 10/08/17 Interval History: Patient seen and examined. Cardiology notes reviewed, diagnostics reviewed. HR currently controlled with no further ectopy on telemetry. Patient states pain in chest continues to radiate to jaw with nausea. Increases with inspiration, does not change with position. Became SOB when ambulating to bathroom. Objective Active Medications: Albuterol (Ventolin Hfa Inhaler*) 2 puff INH Q4H PRN PRN Reason: SOB/WHEEZING Aspirin (Ecotrin Ec Tab*) 650 mg PO Q8H [facility] Atorvastatin Calcium (Lipitor*) 10 mg PO BEDTIME [facility] Last Admin: 10/07/17 21:07 Dose: 10 mg Buspirone HCl (Buspar Tab*) 20 mg PO BID [facility] Last Admin: 10/08/17 15:45 Dose: Not Given Enoxaparin Sodium (Lovenox(*)) 40 mg SUBCUT Q24H [facility] Last Admin: 10/07/17 23:48 Dose: 40 mg Hydroxyzine HCl (Atarax Tab*) 100 mg PO BEDTIME [facility] Last Admin: 10/07/17 21:07 Dose: 100 mg Potassium Chloride/Sodium Chloride (Ns 0.9% W/ 20 Meq Kcl 1000 Ml*) 1,000 mls @ 75 mls/hr IV PER RATE [facility] Last Admin: 10/07/17 18:37 Dose: 75 mls/hr Metoprolol Tartrate (Lopressor Iv*) 5 mg IV Q6H PRN PRN Reason: TACHYCARDIA Mirtazapine (Remeron Tab*) 45 mg PO BEDTIME [facility] Last Admin: 10/07/17 21:07 Dose: 45 mg Mometasone Furoate/Formoterol Fumar (Dulera 100/5 Mdi*) 2 puff INH BID [facility] Last Admin: 10/08/17 08:35 Dose: 2 puff Morphine Sulfate (Morphine Inj (Syringe)*) 4 mg IV Q4H PRN PRN Reason: PAIN Last Admin: 10/08/17 14:36 Dose: 4 mg Nitroglycerin (Nitroglycerin 2% Oint*) 1 inch TOPICAL 0800,1400 [facility] PRN Reason: Protocol Last Admin: 10/08/17 14:45 Dose: Not Given Ondansetron HCl (Zofran Inj*) 4 mg IV Q4H PRN PRN Reason: NAUSEA Last Admin: 10/08/17 14:37 Dose: 4 mg Pantoprazole Sodium (Protonix Tab (Nf)) 40 mg PO BID [facility] Prazosin HCl (Minipress Cap*) 2 mg PO BEDTIME [facility] Last Admin: 10/07/17 21:07 Dose: 2 mg Sucralfate (Carafate*) 1 gm PO QID [facility] Last Admin: 10/08/17 15:45 Dose: Not Given Vital Signs - 8 hr 10/08/17 10/08/17 10/08/17 08:38 09:56 14:22 Temperature Pulse Rate 73 Respiratory 16 12 16 Rate Blood Pressure (mmHg) O2 Sat by Pulse 99 Oximetry 10/08/17 10/08/17 14:36 15:36 Temperature 98.5 F Pulse Rate 79 Respiratory 16 14 Rate Blood Pressure 143/100 (mmHg) O2 Sat by Pulse 100 Oximetry Oxygen Devices in Use Now: Nasal Cannula Appearance: Alert, NAD Eyes: No Scleral Icterus, PERRLA Ears/Nose/Mouth/Throat: Mucous Membranes Moist Neck: NL Appearance and Movements; NL JVP, Trachea Midline Respiratory: Symmetrical Chest Expansion and Respiratory Effort, Clear to Auscultation Cardiovascular: NL Sounds; No Murmurs; No JVD, RRR, No Edema Abdominal: NL Sounds; No Tenderness; No Distention Extremities: No Edema, No Clubbing, Cyanosis Neurological: Alert and Oriented x 3, NL Muscle Strength and Tone Nutrition: Taking PO's Result Diagrams: 10/08/17 05:00 10/08/17 05:00 Additional Lab and Data: Lab Results 10/07/17 10/07/17 10/07/17 Range/Units 13:40 13:40 13:40 WBC (3.5-10.8) 10^3/ul RBC (4.0-5.4) 10^6/ul Hgb (14.0-18.0) g/dl Hct (42-52) % MCV (80-94) fL MCH (27-31) pg MCHC (31-36) g/dl RDW (10.5-15) % Plt Count (150-450) 10^3/ul MPV (7.4-10.4) um3 Neut % (Auto) (38-83) % Lymph % (Auto) (25-47) % [place] % (Auto) (0-7) % Eos % (Auto) (0-6) % Baso % (Auto) (0-2) % Absolute Neuts (auto) (1.5-7.7) 10^3/ul Absolute Lymphs (auto) (1.0-4.8) 10^3/ul Absolute Monos (auto) (0-0.8) 10^3/ul Absolute Eos (auto) (0-0.6) 10^3/ul Absolute Basos (auto) (0-0.2) 10^3/ul Absolute Nucleated RBC 10^3/ul Nucleated RBC % INR (Anticoag Therapy) 1.10 H (0.77-1.02) APTT 25.5 L (26.0-36.3) seconds D-Dimer, Quantitative < 200 (Less Than 230) ng/mL Sodium 141 (139-145) mmol/L Potassium 2.8 L (3.5-5.0) mmol/L Chloride 106 (101-111) mmol/L Carbon Dioxide 25 (22-32) mmol/L Anion Gap 10 (2-11) mmol/L BUN 10 (6-24) mg/dL Creatinine 0.56 L (0.67-1.17) mg/dL Est GFR ( Amer) 206.8 (>60) Est GFR (Non-Af Amer) 160.8 (>60) BUN/Creatinine Ratio 17.9 (8-20) Glucose 124 H (70-100) mg/dL Lactic Acid (0.5-2.0) mmol/L Calcium 8.6 (8.6-10.3) mg/dL Magnesium 1.6 L (1.9-2.7) mg/dL Total Bilirubin 0.20 (0.2-1.0) mg/dL AST 20 (13-39) U/L ALT 25 (7-52) U/L Alkaline Phosphatase 55 (34-104) U/L Total Creatine Kinase 186 (10-223) U/L CK-MB (CK-2) 1.5 (0.6-6.3) ng/mL Troponin I 0.00 (<0.04) ng/mL C-Reactive Protein 3.92 (< 5.00) mg/L B-Natriuretic Peptide 26 ( - 100) pg/mL Total Protein 5.9 L (6.4-8.9) g/dL Albumin 3.6 (3.2-5.2) g/dL Globulin 2.3 (2-4) g/dL Albumin/Globulin Ratio 1.6 (1-3) Lipase 25 (11.0-82.0) U/L TSH 1.82 (0.34-5.60) mcIU/mL Blood Type Antibody Screen 10/07/17 10/07/17 10/07/17 Range/Units 13:40 13:40 13:40 WBC 12.4 H (3.5-10.8) 10^3/ul RBC 4.23 (4.0-5.4) 10^6/ul Hgb 12.6 L (14.0-18.0) g/dl Hct 38 L (42-52) % MCV 90 (80-94) fL MCH 30 (27-31) pg MCHC 33 (31-36) g/dl RDW 14 (10.5-15) % Plt Count 151 (150-450) 10^3/ul MPV 8.3 (7.4-10.4) um3 Neut % (Auto) 86.9 H (38-83) % Lymph % (Auto) 6.0 L (25-47) % [place] % (Auto) 6.9 (0-7) % Eos % (Auto) 0 (0-6) % Baso % (Auto) 0.2 (0-2) % Absolute Neuts (auto) 10.8 H (1.5-7.7) 10^3/ul Absolute Lymphs (auto) 0.7 L (1.0-4.8) 10^3/ul Absolute Monos (auto) 0.9 H (0-0.8) 10^3/ul Absolute Eos (auto) 0 (0-0.6) 10^3/ul Absolute Basos (auto) 0 (0-0.2) 10^3/ul Absolute Nucleated RBC 0 10^3/ul Nucleated RBC % 0 INR (Anticoag Therapy) (0.77-1.02) APTT (26.0-36.3) seconds D-Dimer, Quantitative (Less Than 230) ng/mL Sodium (139-145) mmol/L Potassium (3.5-5.0) mmol/L Chloride (101-111) mmol/L Carbon Dioxide (22-32) mmol/L Anion Gap (2-11) mmol/L BUN (6-24) mg/dL Creatinine (0.67-1.17) mg/dL Est GFR ( Amer) (>60) Est GFR (Non-Af Amer) (>60) BUN/Creatinine Ratio (8-20) Glucose (70-100) mg/dL Lactic Acid 3.9 H* (0.5-2.0) mmol/L Calcium (8.6-10.3) mg/dL Magnesium (1.9-2.7) mg/dL Total Bilirubin (0.2-1.0) mg/dL AST (13-39) U/L ALT (7-52) U/L Alkaline Phosphatase (34-104) U/L Total Creatine Kinase (10-223) U/L CK-MB (CK-2) (0.6-6.3) ng/mL Troponin I (<0.04) ng/mL C-Reactive Protein (< 5.00) mg/L B-Natriuretic Peptide ( - 100) pg/mL Total Protein (6.4-8.9) g/dL Albumin (3.2-5.2) g/dL Globulin (2-4) g/dL Albumin/Globulin Ratio (1-3) Lipase (11.0-82.0) U/L TSH (0.34-5.60) mcIU/mL Blood Type A Negative Antibody Screen Negative Diagnostic Imaging: Patient Name: FLAVIO ACUNA [id number] Medical Record#: [id number] Ordering Physician: Jim Baird MD [facility] [place].#: [id number] : 1975 Age: 42 Sex: M Location: EMERGENCY DEPARTMENT Exam Date: 10/07/17 1240 ADM Status: REG ER Order Information: CTA CHEST Accession Number: [id number] CPT: 20402 HISTORY: Chest pain, history of Marfan syndrome COMPARISONS: None TECHNIQUE: Multiple contiguous axial CT scans of the chest were obtained after the administration of nonionic intravenous contrast, timed to the systemic arterial phase of contrast enhancement.. Coronal and sagittal multiplanar reformations are also submitted for review. 3-D volumetric reconstructions of the aorta are also submitted for review. FINDINGS: Evaluation is limited by suboptimal contrast opacification. NECK AND THYROID: The lower neck and thyroid are unremarkable. CHEST WALL: There is no lower cervical, axillary, or supraclavicular lymphadenopathy by size criteria. HEART AND PERICARDIUM: The heart is unremarkable. AORTA AND PULMONARY VASCULATURE: The aorta and pulmonary vasculature are normal for technique. There is no interstitial dilatation. There is no intimal flap to suggest dissection. There is no periaortic hematoma. While there is no obvious pulmonary arterial filling defect, the attenuation of the main pulmonary artery does not reach diagnostic criteria for detection of pulmonary blood.. MEDIASTINUM: There is no mediastinal lymphadenopathy by size criteria. KATHERINE: There is no hilar lymphadenopathy by size criteria. AIRWAY AND ESOPHAGUS: The airway is unremarkable, without endobronchial filling defect. The esophagus is grossly normal. LUNG PARENCHYMA: There is a 0.4 cm nodule of the left upper lobe on axial image 37. PLEURA: No pleural abnormalities are noted. UPPER ABDOMEN: The upper abdomen is unremarkable. BONES AND SOFT TISSUES: Mild degenerative changes are noted. OTHER: None. IMPRESSION: 1. NO AORTIC ANEURYSMAL DILATATION, INTIMAL FLAP, OR PERIAORTIC HEMATOMA. 2. THERE IS A 0.4 CM NODULE OF THE LEFT UPPER LOBE. THE RECOMMENDATIONS FOR FOLLOWUP AND MANAGEMENT OF AN INCIDENTALLY DETECTED PULMONARY NODULE LESS THAN 6 MM IN SIZE, IN A PATIENT WITHOUT A HISTORY OF MALIGNANCY, INCLUDE NO FOLLOWUP FOR A LOW-RISK PATIENT OR OPTIONAL FOLLOWUP CT IN 12 MONTHS FOR A HIGH RISK PATIENT. NOTES: SIZE = AVERAGE LENGTH AND WIDTH; HIGH RISK IS DEFINED A HISTORY OF SMOKING OR OTHER KNOW RISK FACTORS FOR LUNG CANCER; LOW RISK IS DEFINED MINIMAL OR ABSENT HISTORY OF SMOKING OR OTHER KNOWN RISK FACTORS. Nida, H, MACHO Zapien, ROLANDO Rey, et al (2017) "Guidelines for Management of Incidental Pulmonary Nodules Detected on CT Images: From the Fleischner Society 2017." Radiology; 284(1): 228-243. doi:10.1148/radiol.9436884482 . 1 of 2 Assess/Plan/Problems-Billing Assessment: This is a 42 year old male with hx of marfan syndrome, CAD/TX, TIA/CVA, esophagitis, spinal disk disease, and DVT that presents with acute, sharp chest pain, leukocytosis and EKG changes. - Patient Problems (1) Chest pain, pleuritic Comment: - Etiololgy pleuritis vs percarditis? - Did have elvated LA, leukocytosis and mild fever at admission - Cardiology consult appreciated - Lexiscan low risk - Will initiate ASA 650mg TID with meals and add high dose PPI BID given hx of esophagitis and monitor for effect - Remain on tele (2) Marfan syndrome Code(s): Q87.40 - MARFAN'S SYNDROME, UNSPECIFIED SNOMED Code(s): 83079643 Comment: - At baseline (3) History of coronary artery disease Code(s): Z86.79 - PERSONAL HISTORY OF OTHER DISEASES OF THE CIRCULATORY SYSTEM SNOMED Code(s): 823108135 Comment: - Continue BB - Lexiscan with low risk - Would recommend diagnostic cath at some point given extensive history - Hold low dose ASA while on higher dosages for now (4) History of CVA (cerebrovascular accident) Code(s): Z86.73 - PRSNL HX OF TIA (TIA), AND CEREB INFRC W/O RESID DEFICITS SNOMED Code(s): 810707173 Comment: - Stable, at baseline (5) Esophagitis Code(s): K20.9 - ESOPHAGITIS, UNSPECIFIED SNOMED Code(s): 49358616 Comment: - Continue carafate QID - PPI BID Status and Disposition: Remain inpatient and monitor response to high dose NSAIDs, monitor for bleeding. Counseling and/or Coordination of Care Minutes: coordinated with Dr. Doty
[2017-10-08] MEDS ORDERED: Nitroglycerin 2% OINT* 1 GM PAK TOPICAL SCH (16:38)
[2017-10-08] MEDS: CMCS:Pantoprazole TAB (NF) 40 MG TAB PO SCH ×2 (17:28→20:43)
[2017-10-08] MEDS: Aspirin EC TAB* 325 MG PO SCH (17:28)
[2017-10-08] MEDS: hydrOXYzine HCL TAB* 50 MG PO SCH (20:43)
[2017-10-08] MEDS: Prazosin CAP* 1 MG PO SCH (20:43)
[2017-10-08] MEDS: Mirtazapine TAB* 15 MG PO SCH (20:43)
[2017-10-08] MEDS: Atorvastatin* 10 MG TAB PO SCH (20:44)
[2017-10-09] MEDS: Aspirin EC TAB* 325 MG PO SCH ×4 (00:08→23:34)
[2017-10-09] MEDS: Enoxaparin(*) 40 MG/0.4 ML SYR SUBCUT SCH ×2 (00:09→23:34)
[2017-10-09] MEDS: Morphine INJ* 4 MG/ML 1 ML SYRINGE (NEW SYRINGE VERSION) IV PRN (03:30)
[2017-10-09] MEDS: NS 0.9% w/ 20 Meq KCL 1000 ML* 1,000 ML IV SCH (05:06)
[2017-10-09 07:21] LABS: ABS Basophils 0 10^3/ul (0-0.2); ABS Eosinophils 0.1 10^3/ul (0-0.6); ABS Monocytes 0.6 10^3/ul (0-0.8); ABS Nucleated RBC 0 10^3/ul; Eosinophil % 0.9 % (0-6); Hematocrit 36 % (42-52); Hemoglobin 12.2 g/dl (14.0-18.0); Lymphocyte % 34.6 % (25-47); Mean Corpuscular HGB Conc 34 g/dl (31-36); Mean Corpuscular Hemoglobin 30 pg (27-31); Mean Corpuscular Volume 90 fL (80-94); Mean Platelet Volume 8.8 um3 (7.4-10.4); Nucleated Red Blood Cells % 0; Platelet Count 138 10^3/ul (150-450); Red Blood Count 4.03 10^6/ul (4.0-5.4); Red Cell Distribution Width 14 % (10.5-15); White Blood Count 5.7 10^3/ul (3.5-10.8)
[2017-10-09 07:36] LABS: EGFR Non-African American 175.1 (>60)
[2017-10-09] MEDS: Mometasone/Formoter 100/5 MDI INH SCH ×2 (07:55→20:15)
[2017-10-09] MEDS: Nitroglycerin 2% OINT* 1 GM PAK TOPICAL SCH (09:10)
[2017-10-09] MEDS: CMCS:Pantoprazole TAB (NF) 40 MG TAB PO SCH ×2 (09:14→20:54)
[2017-10-09] MEDS: busPIRone TAB* 10 MG PO SCH ×2 (09:14→20:53)
[2017-10-09] MEDS: Sucralfate TAB* 1 GM PO SCH ×4 (09:15→20:54)
[2017-10-09] MEDS: Morphine INJ* 2 MG/ML 1 ML CARPUJECT IV PRN ×2 (09:16→16:55)
[2017-10-09] MEDS: Gabapentin CAP(*) 100 MG PO SCH ×2 (16:55→20:54)
--- NOTE | 2017-10-09 17:04 | PN ---
Subjective Date of Service: 10/09/17 Interval History: Patient seen and examined. States he still has pain in his chest with inspiration, still radiating to jaw but no longer feels SOB. Now on RA and tolerating. No further complaints. Objective Active Medications: Albuterol (Ventolin Hfa Inhaler*) 2 puff INH Q4H PRN PRN Reason: SOB/WHEEZING Aspirin (Ecotrin Ec Tab*) 650 mg PO Q8H [facility] Last Admin: 10/09/17 09:13 Dose: 650 mg Atorvastatin Calcium (Lipitor*) 10 mg PO BEDTIME [facility] Last Admin: 10/08/17 20:44 Dose: 10 mg Buspirone HCl (Buspar Tab*) 20 mg PO BID [facility] Last Admin: 10/09/17 09:14 Dose: 20 mg Enoxaparin Sodium (Lovenox(*)) 40 mg SUBCUT Q24H [facility] Last Admin: 10/09/17 00:09 Dose: 40 mg Gabapentin (Neurontin Cap(*)) 100 mg PO TID [facility] Hydroxyzine HCl (Atarax Tab*) 100 mg PO BEDTIME [facility] Last Admin: 10/08/17 20:43 Dose: 100 mg Potassium Chloride/Sodium Chloride (Ns 0.9% W/ 20 Meq Kcl 1000 Ml*) 1,000 mls @ 75 mls/hr IV PER RATE [facility] Last Admin: 10/09/17 05:06 Dose: 75 mls/hr Metoprolol Tartrate (Lopressor Iv*) 5 mg IV Q6H PRN PRN Reason: TACHYCARDIA Mirtazapine (Remeron Tab*) 45 mg PO BEDTIME [facility] Last Admin: 10/08/17 20:43 Dose: 45 mg Mometasone Furoate/Formoterol Fumar (Dulera 100/5 Mdi*) 2 puff INH BID [facility] Last Admin: 10/09/17 07:55 Dose: 2 puff Morphine Sulfate (Morphine Inj (Syringe)*) 2 mg IV Q6H PRN PRN Reason: PAIN Last Admin: 10/09/17 09:16 Dose: 2 mg Ondansetron HCl (Zofran Inj*) 4 mg IV Q4H PRN PRN Reason: NAUSEA Last Admin: 10/08/17 20:44 Dose: 4 mg Pantoprazole Sodium (Protonix Tab (Nf)) 40 mg PO BID [facility] Last Admin: 10/09/17 09:14 Dose: 40 mg Prazosin HCl (Minipress Cap*) 2 mg PO BEDTIME [facility] Last Admin: 10/08/17 20:43 Dose: 2 mg Sucralfate (Carafate*) 1 gm PO QID [facility] Last Admin: 10/09/17 11:40 Dose: 1 gm Vital Signs - 8 hr 10/09/17 10/09/17 10/09/17 09:16 09:45 09:49 Temperature 97.9 F Pulse Rate 90 78 Respiratory 18 16 Rate Blood Pressure 106/45 (mmHg) O2 Sat by Pulse 100 100 Oximetry 10/09/17 11:42 Temperature Pulse Rate Respiratory 14 Rate Blood Pressure (mmHg) O2 Sat by Pulse Oximetry Appearance: Alert, NAD Eyes: No Scleral Icterus, PERRLA Ears/Nose/Mouth/Throat: NL Teeth, Lips, Gums Neck: NL Appearance and Movements; NL JVP, Trachea Midline Respiratory: Symmetrical Chest Expansion and Respiratory Effort, Clear to Auscultation Cardiovascular: NL Sounds; No Murmurs; No JVD, RRR, No Edema Abdominal: NL Sounds; No Tenderness; No Distention Extremities: No Edema Neurological: Alert and Oriented x 3 Nutrition: Taking PO's Result Diagrams: 10/09/17 06:54 10/09/17 06:54 Additional Lab and Data: Lab Results 10/07/17 10/07/17 10/07/17 Range/Units 13:40 13:40 13:40 WBC (3.5-10.8) 10^3/ul RBC (4.0-5.4) 10^6/ul Hgb (14.0-18.0) g/dl Hct (42-52) % MCV (80-94) fL MCH (27-31) pg MCHC (31-36) g/dl RDW (10.5-15) % Plt Count (150-450) 10^3/ul MPV (7.4-10.4) um3 Neut % (Auto) (38-83) % Lymph % (Auto) (25-47) % [place] % (Auto) (0-7) % Eos % (Auto) (0-6) % Baso % (Auto) (0-2) % Absolute Neuts (auto) (1.5-7.7) 10^3/ul Absolute Lymphs (auto) (1.0-4.8) 10^3/ul Absolute Monos (auto) (0-0.8) 10^3/ul Absolute Eos (auto) (0-0.6) 10^3/ul Absolute Basos (auto) (0-0.2) 10^3/ul Absolute Nucleated RBC 10^3/ul Nucleated RBC % INR (Anticoag Therapy) 1.10 H (0.77-1.02) APTT 25.5 L (26.0-36.3) seconds D-Dimer, Quantitative < 200 (Less Than 230) ng/mL Sodium 141 (139-145) mmol/L Potassium 2.8 L (3.5-5.0) mmol/L Chloride 106 (101-111) mmol/L Carbon Dioxide 25 (22-32) mmol/L Anion Gap 10 (2-11) mmol/L BUN 10 (6-24) mg/dL Creatinine 0.56 L (0.67-1.17) mg/dL Est GFR ( Amer) 206.8 (>60) Est GFR (Non-Af Amer) 160.8 (>60) BUN/Creatinine Ratio 17.9 (8-20) Glucose 124 H (70-100) mg/dL Lactic Acid (0.5-2.0) mmol/L Calcium 8.6 (8.6-10.3) mg/dL Magnesium 1.6 L (1.9-2.7) mg/dL Total Bilirubin 0.20 (0.2-1.0) mg/dL AST 20 (13-39) U/L ALT 25 (7-52) U/L Alkaline Phosphatase 55 (34-104) U/L Total Creatine Kinase 186 (10-223) U/L CK-MB (CK-2) 1.5 (0.6-6.3) ng/mL Troponin I 0.00 (<0.04) ng/mL C-Reactive Protein 3.92 (< 5.00) mg/L B-Natriuretic Peptide 26 ( - 100) pg/mL Total Protein 5.9 L (6.4-8.9) g/dL Albumin 3.6 (3.2-5.2) g/dL Globulin 2.3 (2-4) g/dL Albumin/Globulin Ratio 1.6 (1-3) Lipase 25 (11.0-82.0) U/L TSH 1.82 (0.34-5.60) mcIU/mL Blood Type Antibody Screen 10/07/17 10/07/17 10/07/17 Range/Units 13:40 13:40 13:40 WBC 12.4 H (3.5-10.8) 10^3/ul RBC 4.23 (4.0-5.4) 10^6/ul Hgb 12.6 L (14.0-18.0) g/dl Hct 38 L (42-52) % MCV 90 (80-94) fL MCH 30 (27-31) pg MCHC 33 (31-36) g/dl RDW 14 (10.5-15) % Plt Count 151 (150-450) 10^3/ul MPV 8.3 (7.4-10.4) um3 Neut % (Auto) 86.9 H (38-83) % Lymph % (Auto) 6.0 L (25-47) % [place] % (Auto) 6.9 (0-7) % Eos % (Auto) 0 (0-6) % Baso % (Auto) 0.2 (0-2) % Absolute Neuts (auto) 10.8 H (1.5-7.7) 10^3/ul Absolute Lymphs (auto) 0.7 L (1.0-4.8) 10^3/ul Absolute Monos (auto) 0.9 H (0-0.8) 10^3/ul Absolute Eos (auto) 0 (0-0.6) 10^3/ul Absolute Basos (auto) 0 (0-0.2) 10^3/ul Absolute Nucleated RBC 0 10^3/ul Nucleated RBC % 0 INR (Anticoag Therapy) (0.77-1.02) APTT (26.0-36.3) seconds D-Dimer, Quantitative (Less Than 230) ng/mL Sodium (139-145) mmol/L Potassium (3.5-5.0) mmol/L Chloride (101-111) mmol/L Carbon Dioxide (22-32) mmol/L Anion Gap (2-11) mmol/L BUN (6-24) mg/dL Creatinine (0.67-1.17) mg/dL Est GFR ( Amer) (>60) Est GFR (Non-Af Amer) (>60) BUN/Creatinine Ratio (8-20) Glucose (70-100) mg/dL Lactic Acid 3.9 H* (0.5-2.0) mmol/L Calcium (8.6-10.3) mg/dL Magnesium (1.9-2.7) mg/dL Total Bilirubin (0.2-1.0) mg/dL AST (13-39) U/L ALT (7-52) U/L Alkaline Phosphatase (34-104) U/L Total Creatine Kinase (10-223) U/L CK-MB (CK-2) (0.6-6.3) ng/mL Troponin I (<0.04) ng/mL C-Reactive Protein (< 5.00) mg/L B-Natriuretic Peptide ( - 100) pg/mL Total Protein (6.4-8.9) g/dL Albumin (3.2-5.2) g/dL Globulin (2-4) g/dL Albumin/Globulin Ratio (1-3) Lipase (11.0-82.0) U/L TSH (0.34-5.60) mcIU/mL Blood Type A Negative Antibody Screen Negative Diagnostic Imaging: Patient Name: FLAVIO ACUNA [id number] Medical Record#: [id number] Ordering Physician: Jim Baird MD Acct.#: [id number] : 1975 Age: 42 Sex: M Location: EMERGENCY DEPARTMENT Exam Date: 10/07/17 1240 ADM Status: REG ER Order Information: CTA CHEST Accession Number: [id number] CPT: 22033 HISTORY: Chest pain, history of Marfan syndrome COMPARISONS: None TECHNIQUE: Multiple contiguous axial CT scans of the chest were obtained after the administration of nonionic intravenous contrast, timed to the systemic arterial phase of contrast enhancement.. Coronal and sagittal multiplanar reformations are also submitted for review. 3-D volumetric reconstructions of the aorta are also submitted for review. FINDINGS: Evaluation is limited by suboptimal contrast opacification. NECK AND THYROID: The lower neck and thyroid are unremarkable. CHEST WALL: There is no lower cervical, axillary, or supraclavicular lymphadenopathy by size criteria. HEART AND PERICARDIUM: The heart is unremarkable. AORTA AND PULMONARY VASCULATURE: The aorta and pulmonary vasculature are normal for technique. There is no interstitial dilatation. There is no intimal flap to suggest dissection. There is no periaortic hematoma. While there is no obvious pulmonary arterial filling defect, the attenuation of the main pulmonary artery does not reach diagnostic criteria for detection of pulmonary blood.. MEDIASTINUM: There is no mediastinal lymphadenopathy by size criteria. KATHERINE: There is no hilar lymphadenopathy by size criteria. AIRWAY AND ESOPHAGUS: The airway is unremarkable, without endobronchial filling defect. The esophagus is grossly normal. LUNG PARENCHYMA: There is a 0.4 cm nodule of the left upper lobe on axial image 37. PLEURA: No pleural abnormalities are noted. UPPER ABDOMEN: The upper abdomen is unremarkable. BONES AND SOFT TISSUES: Mild degenerative changes are noted. OTHER: None. IMPRESSION: 1. NO AORTIC ANEURYSMAL DILATATION, INTIMAL FLAP, OR PERIAORTIC HEMATOMA. 2. THERE IS A 0.4 CM NODULE OF THE LEFT UPPER LOBE. THE RECOMMENDATIONS FOR FOLLOWUP AND MANAGEMENT OF AN INCIDENTALLY DETECTED PULMONARY NODULE LESS THAN 6 MM IN SIZE, IN A PATIENT WITHOUT A HISTORY OF MALIGNANCY, INCLUDE NO FOLLOWUP FOR A LOW-RISK PATIENT OR OPTIONAL FOLLOWUP CT IN 12 MONTHS FOR A HIGH RISK PATIENT. NOTES: SIZE = AVERAGE LENGTH AND WIDTH; HIGH RISK IS DEFINED A HISTORY OF SMOKING OR OTHER KNOW RISK FACTORS FOR LUNG CANCER; LOW RISK IS DEFINED MINIMAL OR ABSENT HISTORY OF SMOKING OR OTHER KNOWN RISK FACTORS. Nida, H, MACHO Zapien, ROLANDO Rey, et al (2017) "Guidelines for Management of Incidental Pulmonary Nodules Detected on CT Images: From the Fleischner Society 2017." Radiology; 284(1): 228-243. doi:10.1148/radiol.[id number] . 1 of 2 Assess/Plan/Problems-Billing Assessment: This is a 42 year old male with hx of marfan syndrome, CAD/HI, TIA/CVA, esophagitis, spinal disk disease, and DVT that presents with acute, sharp chest pain, leukocytosis and EKG changes. - Patient Problems (1) Chest pain, pleuritic Comment: - Etiololgy pleuritis vs percarditis? - Did have elvated LA, leukocytosis and mild fever at admission - Cardiology consult appreciated - Lexiscan low risk - Continue ASA 650mg TID with meals with taper as per cardiology recommendation and add high dose PPI BID given hx of esophagitis - Add gabapentin today, low dose TID, DC morphine - Concerned that chest wall pain may also be component of the patient's Marfan Syndrome, as he has hx of joint and spine pain (2) Marfan syndrome Code(s): Q87.40 - MARFAN'S SYNDROME, UNSPECIFIED SNOMED Code(s): 13828523 Comment: - At baseline (3) History of coronary artery disease Code(s): Z86.79 - PERSONAL HISTORY OF OTHER DISEASES OF THE CIRCULATORY SYSTEM SNOMED Code(s): 079115641 Comment: - Continue BB - Lexiscan with low risk - Would recommend diagnostic cath at some point given extensive history - Hold low dose ASA while on higher dosages for now (4) History of CVA (cerebrovascular accident) Code(s): Z86.73 - PRSNL HX OF TIA (TIA), AND CEREB INFRC W/O RESID DEFICITS SNOMED Code(s): 375695761 Comment: - Stable, at baseline (5) Esophagitis Code(s): K20.9 - ESOPHAGITIS, UNSPECIFIED SNOMED Code(s): 51443724 Comment: - Continue carafate QID - PPI BID Status and Disposition: Likely DC in AM on ASA taper and gabapentin TID and continue home meds.
[2017-10-09] MEDS: hydrOXYzine HCL TAB* 50 MG PO SCH (20:53)
[2017-10-09] MEDS: Prazosin CAP* 1 MG PO SCH (20:54)
[2017-10-09] MEDS: Mirtazapine TAB* 15 MG PO SCH (20:54)
[2017-10-09] MEDS: Atorvastatin* 10 MG TAB PO SCH (20:54)
[2017-10-09] MEDS: Ondansetron INJ* 2 MG/ML VIAL IV PRN (20:56)
[2017-10-10] MEDS: Mometasone/Formoter 100/5 MDI INH SCH ×2 (07:45→19:47)
[2017-10-10] MEDS: Gabapentin CAP(*) 100 MG PO SCH ×3 (08:35→21:05)
[2017-10-10] MEDS: busPIRone TAB* 10 MG PO SCH ×2 (08:35→21:05)
[2017-10-10] MEDS: Aspirin EC TAB* 325 MG PO SCH (08:35)
[2017-10-10] MEDS: CMCS:Pantoprazole TAB (NF) 40 MG TAB PO SCH ×2 (08:36→21:06)
[2017-10-10] MEDS: Sucralfate TAB* 1 GM PO SCH ×4 (10:29→21:05)
--- NOTE | 2017-10-10 15:22 | RAD ---
Indication: Fall. Anticoagulated. History of CVA. Comparison: October 07, 2017 CT. Technique: Noncontrast CT vertex of skull through foramen magnum. Report: The sulci, ventricles, and basal cisterns are normal for age. [place] matter white matter differentiation is preserved without evidence for edema. No intra or extra axial hemorrhage, mass, or fluid collection detected. Unremarkable visualized orbital contents. Unremarkable calvarium and skull base. Unremarkable scalp. The visualized paranasal sinuses and mastoid air spaces are clear. IMPRESSION: Negative unenhanced head CT unchanged from October 07, 2017.
--- NOTE | 2017-10-10 16:11 | PN ---
Subjective Date of Service: 10/10/17 Interval History: Events from today reviewed: Had episode of "bright blood in my stool" which was seen by RN and noted faint pink. I witnessed next BM which had no blood. Pt indicated that this was the same as the last BM indicated no blood in previous just different descriptors. Slated for discharge but pt had unwitnessed fall in bathroom. Patient called from bathroom for help (guards in room did not hear fall). Pt was examined by this author and could not find any head injury/laceration/abrasion despite noted headstrike. Pt noted ASH and continued diplopia and blurry vision which ultimately prompted order for CT head. After transfer to CT scanned pt became aphasic without production of speech and "unresponsiveness" in CT room. Evaluated by this author and pt was responsive but still averbal. CT scan performed and negative for bleed. Evaluated in bed and now hemiparetic on left, left facial droop at angle of mouth, and tongue deviation to right. He has become progressively more verbal now able to speech in short sentences Objective Active Medications: Albuterol (Ventolin Hfa Inhaler*) 2 puff INH Q4H PRN PRN Reason: SOB/WHEEZING Aspirin (Ecotrin Ec Tab*) 650 mg PO DAILY [facility] Atorvastatin Calcium (Lipitor*) 10 mg PO BEDTIME [facility] Last Admin: 10/09/17 20:54 Dose: 10 mg Buspirone HCl (Buspar Tab*) 20 mg PO BID [facility] Last Admin: 10/10/17 08:35 Dose: 20 mg Gabapentin (Neurontin Cap(*)) 100 mg PO TID [facility] Last Admin: 10/10/17 14:09 Dose: 100 mg Hydroxyzine HCl (Atarax Tab*) 100 mg PO BEDTIME [facility] Last Admin: 10/09/17 20:53 Dose: 100 mg Mirtazapine (Remeron Tab*) 45 mg PO BEDTIME [facility] Last Admin: 10/09/17 20:54 Dose: 45 mg Mometasone Furoate/Formoterol Fumar (Dulera 100/5 Mdi*) 2 puff INH BID [facility] Last Admin: 10/10/17 07:45 Dose: 2 puff Ondansetron HCl (Zofran Inj*) 4 mg IV Q4H PRN PRN Reason: NAUSEA Last Admin: 10/09/17 20:56 Dose: 4 mg Pantoprazole Sodium (Protonix Tab (Nf)) 40 mg PO BID [facility] Last Admin: 10/10/17 08:36 Dose: 40 mg Prazosin HCl (Minipress Cap*) 2 mg PO BEDTIME [facility] Last Admin: 10/09/17 20:54 Dose: 2 mg Sucralfate (Carafate*) 1 gm PO QID [facility] Last Admin: 10/10/17 14:10 Dose: 1 gm Vital Signs - 8 hr 10/10/17 10/10/17 10/10/17 08:35 10:35 11:05 Temperature 98.9 F Pulse Rate 91 Respiratory 18 18 16 Rate Blood Pressure 120/69 (mmHg) O2 Sat by Pulse 97 Oximetry 10/10/17 10/10/17 10/10/17 11:27 12:05 12:35 Temperature 98.8 F 98.7 F 98.8 F Pulse Rate 96 79 236 Respiratory 16 16 16 Rate Blood Pressure 121/98 134/34 96/59 (mmHg) O2 Sat by Pulse 98 98 99 Oximetry 10/10/17 10/10/17 10/10/17 12:43 13:37 14:09 Temperature 99.2 F Pulse Rate 92 Respiratory 16 18 Rate Blood Pressure 132/98 (mmHg) O2 Sat by Pulse 98 99 Oximetry 10/10/17 15:20 Temperature 98.6 F Pulse Rate 90 Respiratory 16 Rate Blood Pressure 130/116 (mmHg) O2 Sat by Pulse 99 Oximetry Oxygen Devices in Use Now: None Appearance: NAD Eyes: No Scleral Icterus, PERRLA Ears/Nose/Mouth/Throat: NL Teeth, Lips, Gums, Mucous Membranes Moist Neck: NL Appearance and Movements; NL JVP, Trachea Midline Respiratory: Symmetrical Chest Expansion and Respiratory Effort, Clear to Auscultation Cardiovascular: RRR Abdominal: NL Sounds; No Tenderness; No Distention, No Hepatosplenomegaly Lymphatic: No Cervical Adenopathy Extremities: No Edema, No Clubbing, Cyanosis Skin: No Rash or Ulcers Neurological: Alert and Oriented x 3, - - as noted in subjective; left facial droop, right tongue deviation which he is able to overcome, PERRLA/EOMI, left arm and leg weakness, hand platform engineer intact Result Diagrams: 10/09/17 06:54 10/09/17 06:54 Additional Lab and Data: Lab Results 10/07/17 10/07/17 10/07/17 Range/Units 13:40 13:40 13:40 WBC (3.5-10.8) 10^3/ul RBC (4.0-5.4) 10^6/ul Hgb (14.0-18.0) g/dl Hct (42-52) % MCV (80-94) fL MCH (27-31) pg MCHC (31-36) g/dl RDW (10.5-15) % Plt Count (150-450) 10^3/ul MPV (7.4-10.4) um3 Neut % (Auto) (38-83) % Lymph % (Auto) (25-47) % Andrews % (Auto) (0-7) % Eos % (Auto) (0-6) % Baso % (Auto) (0-2) % Absolute Neuts (auto) (1.5-7.7) 10^3/ul Absolute Lymphs (auto) (1.0-4.8) 10^3/ul Absolute Monos (auto) (0-0.8) 10^3/ul Absolute Eos (auto) (0-0.6) 10^3/ul Absolute Basos (auto) (0-0.2) 10^3/ul Absolute Nucleated RBC 10^3/ul Nucleated RBC % INR (Anticoag Therapy) 1.10 H (0.77-1.02) APTT 25.5 L (26.0-36.3) seconds D-Dimer, Quantitative < 200 (Less Than 230) ng/mL Sodium 141 (139-145) mmol/L Potassium 2.8 L (3.5-5.0) mmol/L Chloride 106 (101-111) mmol/L Carbon Dioxide 25 (22-32) mmol/L Anion Gap 10 (2-11) mmol/L BUN 10 (6-24) mg/dL Creatinine 0.56 L (0.67-1.17) mg/dL Est GFR ( Amer) 206.8 (>60) Est GFR (Non-Af Amer) 160.8 (>60) BUN/Creatinine Ratio 17.9 (8-20) Glucose 124 H (70-100) mg/dL Lactic Acid (0.5-2.0) mmol/L Calcium 8.6 (8.6-10.3) mg/dL Magnesium 1.6 L (1.9-2.7) mg/dL Total Bilirubin 0.20 (0.2-1.0) mg/dL AST 20 (13-39) U/L ALT 25 (7-52) U/L Alkaline Phosphatase 55 (34-104) U/L Total Creatine Kinase 186 (10-223) U/L CK-MB (CK-2) 1.5 (0.6-6.3) ng/mL Troponin I 0.00 (<0.04) ng/mL C-Reactive Protein 3.92 (< 5.00) mg/L B-Natriuretic Peptide 26 ( - 100) pg/mL Total Protein 5.9 L (6.4-8.9) g/dL Albumin 3.6 (3.2-5.2) g/dL Globulin 2.3 (2-4) g/dL Albumin/Globulin Ratio 1.6 (1-3) Lipase 25 (11.0-82.0) U/L TSH 1.82 (0.34-5.60) mcIU/mL Blood Type Antibody Screen 10/07/17 10/07/17 10/07/17 Range/Units 13:40 13:40 13:40 WBC 12.4 H (3.5-10.8) 10^3/ul RBC 4.23 (4.0-5.4) 10^6/ul Hgb 12.6 L (14.0-18.0) g/dl Hct 38 L (42-52) % MCV 90 (80-94) fL MCH 30 (27-31) pg MCHC 33 (31-36) g/dl RDW 14 (10.5-15) % Plt Count 151 (150-450) 10^3/ul MPV 8.3 (7.4-10.4) um3 Neut % (Auto) 86.9 H (38-83) % Lymph % (Auto) 6.0 L (25-47) % Andrews % (Auto) 6.9 (0-7) % Eos % (Auto) 0 (0-6) % Baso % (Auto) 0.2 (0-2) % Absolute Neuts (auto) 10.8 H (1.5-7.7) 10^3/ul Absolute Lymphs (auto) 0.7 L (1.0-4.8) 10^3/ul Absolute Monos (auto) 0.9 H (0-0.8) 10^3/ul Absolute Eos (auto) 0 (0-0.6) 10^3/ul Absolute Basos (auto) 0 (0-0.2) 10^3/ul Absolute Nucleated RBC 0 10^3/ul Nucleated RBC % 0 INR (Anticoag Therapy) (0.77-1.02) APTT (26.0-36.3) seconds D-Dimer, Quantitative (Less Than 230) ng/mL Sodium (139-145) mmol/L Potassium (3.5-5.0) mmol/L Chloride (101-111) mmol/L Carbon Dioxide (22-32) mmol/L Anion Gap (2-11) mmol/L BUN (6-24) mg/dL Creatinine (0.67-1.17) mg/dL Est GFR ( Amer) (>60) Est GFR (Non-Af Amer) (>60) BUN/Creatinine Ratio (8-20) Glucose (70-100) mg/dL Lactic Acid 3.9 H* (0.5-2.0) mmol/L Calcium (8.6-10.3) mg/dL Magnesium (1.9-2.7) mg/dL Total Bilirubin (0.2-1.0) mg/dL AST (13-39) U/L ALT (7-52) U/L Alkaline Phosphatase (34-104) U/L Total Creatine Kinase (10-223) U/L CK-MB (CK-2) (0.6-6.3) ng/mL Troponin I (<0.04) ng/mL C-Reactive Protein (< 5.00) mg/L B-Natriuretic Peptide ( - 100) pg/mL Total Protein (6.4-8.9) g/dL Albumin (3.2-5.2) g/dL Globulin (2-4) g/dL Albumin/Globulin Ratio (1-3) Lipase (11.0-82.0) U/L TSH (0.34-5.60) mcIU/mL Blood Type A Negative Antibody Screen Negative Diagnostic Imaging: Patient Name: FLAVIO ACUNA [id number] Medical Record#: [id number] [facility]ing Physician: [id number] : 1975 Age: 42 Sex: M Location: EMERGENCY DEPARTMENT Exam Date: 10/07/17 1240 ADM Status: [facility] ER Order Information: CTA CHEST Accession Number: [id number] CPT: 48464 HISTORY: Chest pain, history of Marfan syndrome COMPARISONS: None TECHNIQUE: Multiple contiguous axial CT scans of the chest were obtained after the administration of nonionic intravenous contrast, timed to the systemic arterial phase of contrast enhancement.. Coronal and sagittal multiplanar reformations are also submitted for review. 3-D volumetric reconstructions of the aorta are also submitted for review. FINDINGS: Evaluation is limited by suboptimal contrast opacification. NECK AND THYROID: The lower neck and thyroid are unremarkable. CHEST WALL: There is no lower cervical, axillary, or supraclavicular lymphadenopathy by size criteria. HEART AND PERICARDIUM: The heart is unremarkable. AORTA AND PULMONARY VASCULATURE: The aorta and pulmonary vasculature are normal for technique. There is no interstitial dilatation. There is no intimal flap to suggest dissection. There is no periaortic hematoma. While there is no obvious pulmonary arterial filling defect, the attenuation of the main pulmonary artery does not reach diagnostic criteria for detection of pulmonary blood.. MEDIASTINUM: There is no mediastinal lymphadenopathy by size criteria. KATHERINE: There is no hilar lymphadenopathy by size criteria. AIRWAY AND ESOPHAGUS: The airway is unremarkable, without endobronchial filling defect. The esophagus is grossly normal. LUNG PARENCHYMA: There is a 0.4 cm nodule of the left upper lobe on axial image 37. PLEURA: No pleural abnormalities are noted. UPPER ABDOMEN: The upper abdomen is unremarkable. BONES AND SOFT TISSUES: Mild degenerative changes are noted. OTHER: None. IMPRESSION: 1. NO AORTIC ANEURYSMAL DILATATION, INTIMAL FLAP, OR PERIAORTIC HEMATOMA. 2. THERE IS A 0.4 CM NODULE OF THE LEFT UPPER LOBE. THE RECOMMENDATIONS FOR FOLLOWUP AND MANAGEMENT OF AN INCIDENTALLY DETECTED PULMONARY NODULE LESS THAN 6 MM IN SIZE, IN A PATIENT WITHOUT A HISTORY OF MALIGNANCY, INCLUDE NO FOLLOWUP FOR A LOW-RISK PATIENT OR OPTIONAL FOLLOWUP CT IN 12 MONTHS FOR A HIGH RISK PATIENT. NOTES: SIZE = AVERAGE LENGTH AND WIDTH; HIGH RISK IS DEFINED A HISTORY OF SMOKING OR OTHER KNOW RISK FACTORS FOR LUNG CANCER; LOW RISK IS DEFINED MINIMAL OR ABSENT HISTORY OF SMOKING OR OTHER KNOWN RISK FACTORS. MacMahon, H, MACHO Zapien, ROLANDO Rey, et al (2017) "Guidelines for Management of Incidental Pulmonary Nodules Detected on CT Images: From the Fleischner Society 2017." Radiology; 284(1): 228-243. doi:10.1148/radiol.1734692917 . 1 of 2 Assess/Plan/Problems-Billing Assessment: This is a 42 year old male with hx of marfan syndrome, CAD/[place], TIA/CVA, esophagitis, spinal disk disease, and DVT that presents with acute, sharp chest pain, leukocytosis and EKG changes with stay complicated for fall with headstrike and discordant neurological symptoms. - Patient Problems (1) Neurologic abnormality Comment: I do not think this represents a TIA/CVA CT head negative Discussed finding with neurology who will evaluate start neurologic checks Will delay discharge untill tomorrow. Additional testing only if recommended by our consultation (2) Pulmonary nodule Comment: 4 cm KAI. Needs repeat CT as outpatient 6-12 montsh with smoking history Discussed with patient Info placed in dc summary and paperwork (3) Chest pain, pleuritic Comment: Pericarditis seems unlikely with absent EKG finds and nominal inflammatory markers Appreciate cards c/s Lexiscan low risk Continue ASA 650mg daily x 5 days then restart 81 mg daily high dose PPI BID given hx of esophagitis gabapentin started low dose TID (4) Marfan syndrome Comment: - At baseline (5) DVT prophylaxis Comment: loevnox stopped 10/10 c/w ASA 650 Status and Disposition: Likely DC in AM
[2017-10-10] MEDS ORDERED: Ibuprofen TAB* 600 MG PO ONE (18:03)
[2017-10-10] MEDS: Ondansetron INJ* 2 MG/ML VIAL IV PRN (18:05)
[2017-10-10] MEDS: Mirtazapine TAB* 15 MG PO SCH (21:02)
[2017-10-10] MEDS: Prazosin CAP* 1 MG PO SCH (21:05)
[2017-10-10] MEDS: hydrOXYzine HCL TAB* 50 MG PO SCH (21:05)
[2017-10-10] MEDS: Atorvastatin* 10 MG TAB PO SCH (21:05)
--- NOTE | 2017-10-10 21:48 | CONS ---
NEUROLOGY CONSULTATION: DATE OF CONSULT: 10/10/17 LOCATION: He is in room 451. REFERRING PHYSICIAN: Dr. Marino Lima. CHIEF COMPLAINT: Left-sided weakness. HISTORY OF PRESENT ILLNESS: Manuel Arroyo is a 42-year-old left-handed man who was admitted to the hospital on 10/08/17 from [facility] with chest pain. He had a negative workup and thought was perhaps to have pericarditis because of ST segment depression. He was treated with aspirin and was also getting Lovenox, which was just written to be discontinued today. He apparently fell in the bathroom and it was unobserved. He states he hit his head. He states he has had a bad headache since. He was taken down to CAT scan because of the antiplatelet and anticoagulant therapy and a head CT was done and was interpreted as normal. In CAT scan, he became unresponsive. He developed left-sided weakness. He was brought up to the floor and my phone conversation with Dr. Lima was that he was not moving his left side at all. He was not making any effort to speak, but would nod his head appropriately. I was called in to see him. Since then, he still cannot move his left side and it feels numb to him. He is now able to speak. He states his vision is blurry and he has a throbbing headache. He said he had a stroke in July. He was in a different correctional facility and was hospitalized in [facility] for 2 to 2-1/2 weeks. He could not move his left side and he could not speak for at least a few days. He said when he was discharged, they told him it was "TIA." He still was not able to move his left side well and was in a wheelchair. He said that he finally recovered completely just about a month ago. There is no other prior history of TIA or stroke. He was on aspirin 81 mg a day. PAST MEDICAL HISTORY: Unvalidated but by self-report, he has Marfan syndrome. There is a questionable history of deep vein thrombosis as well. MEDICATIONS: On admission included: 1. Aspirin 81 mg p.o. daily. 2. Metoprolol 50 mg p.o. daily. 3. Lipitor 10 mg p.o. daily. 4. Ventolin inhaler. 5. Carafate 1 g q.i.d. 6. Prazosin 2 mg p.o. daily. 7. Remeron 45 mg p.o. daily. 8. Vistaril 100 mg q.h.s. 9. BuSpar 20 mg b.i.d. Current medications include: 1. Aspirin 650 mg p.o. daily. 2. Atorvastatin 10 mg p.o. daily. 3. BuSpar 20 mg p.o. b.i.d. 4. Albuterol inhaler. 5. Hydroxyzine 100 mg p.o. q.h.s. 6. Gabapentin 100 mg p.o. t.i.d. 7. Remeron 40 mg p.o. q.h.s. 8. Protonix 40 mg p.o. b.i.d. 9. Prazosin 2 mg p.o. q.h.s. 10. Carafate 1 g p.o. q.i.d. ALLERGIES: He is listed of having allergies to ACETAMINOPHEN, HYDROCODONE, LATEX. REVIEW OF SYSTEMS: Notable for a bad headache. He said before the fall, he did not have any headaches. He complains of blurry vision. There is no history of diabetes. PHYSICAL EXAMINATION: He is afebrile; temperature 98.6; blood pressure 130/116 , it was earlier 132/98; heart rates in the 80s and seems regular. Respirations 16 and oxygen saturation is 99% on room air. Heart is in a regular rate and rhythm without murmurs. There are no cervical bruits. Oral mucosa is moist and atraumatic. Head is atraumatic. Neurological Exam: Pupils react equally from 4 down to 2.5 mm. Eye movements are normal. Visual infante are full to confrontation. Speech is clear. When he protrudes his tongue, it deviates sharply to the right. His palate rises symmetrically when he phonates, however. Facial musculature is symmetric, but with volitional testing, he tends to contract just the right side of his face. However, when speaking normally and getting the history, his face is symmetric. Also, eye closure when forcefully closed is quite symmetric. Facial sensation is reported as absent to all modalities including vibration, temperature, pin, and light touch. He splits vibration on the forehead with no perception of vibration on the left forehead and intact on the right. Pin discrimination is absent in the left side of the forehead and sharply becomes positive at the midline. Hearing is intact. Neck strength is normal. Motor exam reveals no movement of the left arm and leg when formally tested. He has normal strength in the right arm and leg proximally and distally. He has normal tone in all limbs. When the left arm is raised up and he is asked to move it, he does generate less than antigravity wrist extension, finger extension, and some elbow flexion. When asked to raise the right leg, he raised it without difficulty. When asked to raise the left leg, he does not raise it off the bed, but just tenses all the muscles in his leg. In checking heel pressure, he does not generate any heel pressure on his right leg when he attempts to raise the left leg, but generates good heel pressure with the left leg when he raises the right leg normally. He has normal finger taps in the right. He has grade I reflexes at brachioradialis and knees, he has bilateral plantar flexion responses. He is alert and able to provide a coherent history, although of dubious veracity. His language is entirely fluent. IMAGING: I reviewed the CT images of his brain done a little while ago and they looked completely normal. LABORATORY DATA: Laboratory studies from yesterday notable for a chemistry profile with a creatinine of 0.52 and total protein of 5.9 and otherwise normal chemistries. His INR on 10/07/17 was 1.1 and PTT 25.5. CBC was notable for an elevated white blood cell count of 12.4 when he came in on the 10/07/16, normal CBC yesterday other than the hematocrit of 36 and platelet count of 138,000. IMPRESSION AND PLAN: Impression is that of psychogenic hemiparesis, mutism, and sensory deficits. He has numerous functional findings on exam. His tongue deviation is nonphysiological as his splitting of vibration on the forehead. Typically conversion disorder is the usual cause of psychogenic hemiplegia. However, in this case with clear secondary gain and symptoms developing just before he was supposed to be transferred back to [place] malingering to be strongly considered. I explained to the patient that he is not having a stroke. I explained that he is either having psychiatric problems from unrecognized stressors or he is fabricating it. I told him I would like a psychiatrist to evaluate him to see if they find evidence of a psychiatric disorder and if not, then I think it is most likely malingering. I discussed my impression with Dr. Lima. [id number]/[facility] #: [id number] EUN
--- NOTE | 2017-10-11 01:40 | DS ---
DISCHARGE SUMMARY: DATE OF ADMISSION: 10/07/17 DATE OF DISCHARGE: 10/11/17 PRIMARY CARE PROVIDER: Clinic at [facility]. PRIMARY DIAGNOSIS: Chest pain. SECONDARY DIAGNOSES: Include: 1. Left upper lobe 0.4 cm pulmonary nodule 1. Likely malingering 2. Tobacco abuse. 3. Marfan syndrome. 4. Reported history of myocardial infarctions. 5. Reported history of cerebrovascular accidents and transient ischemic attacks. 6. History of asthma. 7. History of DVT in 2014. 8. Degenerative disk disease. 9. Osteoarthritis. MEDICATIONS ON DISCHARGE: 1. Metoprolol tartrate 50 mg in the morning. 2. Prazosin 2 mg at bedtime. 3. Carafate 1 g 4 times a day. 4. Advair 100/50 one puff twice daily. 5. Atorvastatin 10 mg at bedtime. 6. Albuterol 108 mcg daily. 7. Buspirone 20 to 30 mg twice daily. 8. Hydroxyzine 100 mg at bedtime. 9. Mirtazapine 40 mg at bedtime. 10. Omeprazole 20 mg twice daily, please note increased dose. 11. Gabapentin 100 mg 3 times a day, please note new medication. 12. Aspirin 650 mg daily for 5 additional days, then start 81 mg daily. IMAGING PERFORMED DURING HOSPITAL STAY: CTA chest and thorax: Impression: No aortic aneurysmal dilatation, intimal flap or periaortic hematoma. There is a 0.4 cm nodule of the left upper lobe. There is no obvious pulmonary arterial filling defect. The attenuation of the main pulmonary artery does not reach diagnostic criteria for detection of pulmonary blood. No pleural abnormalities. Head CTA: Normal CT angiogram of the head and neck. Nuclear cardiac stress test: Impression: No stress-induced ischemia. Normal wall motion and contractility. Assessment: Low risk. CONSULTATIONS OBTAINED DURING HOSPITAL STAY: Cardiology. PERTINENT LABORATORY DATA: Notable for ESR of 10. White blood cell count on presentation 12.4, was 5.7 on discharge. D-dimer less than 200. Lactic acid on presentation 3.9, troponin I 0.00 on 3 consecutive checks. BNP 26. TSH 1.8. CRP 8.57, was 3.92 on presentation. Potassium 2.8 on presentation. HISTORY OF PRESENT ILLNESS AND HOSPITAL COURSE: This 42-year-old man with past medical history of Marfan syndrome and self-reported ME, last in 2005 no reported cardiac catheterization, presented to the hospital with pleuritic chest pain radiating to his left jaw. He had 3 negative troponins as well as low risk stress test. However, was noted to have lateral ST segment depression on presentation that resolved over the course of his hospital stay. He was seen in conjunction with Cardiology and it was noted that he does not meet set clinical criteria for pericarditis with absence of EKG changes and absent inflammatory markers. He was started on high dose 3 times daily 650 mg aspirin for 3 days. Recommendation was to taper this medication down over the next several days. However, the decision was made by this author to rapid taper and discharge on daily high-dose aspirin 650 mg for 5 additional days given the absence of inflammatory markers as well as other overt evidence of pericarditis. Patient was not treated with colchicine. He continued to have pleuritic chest pain with deep inspiration on the day of discharge; however, improved since the day of admission. Unclear etiology for his presenting symptoms. Previous provider recommending outpatient catheterization secondary to history of CAD, not independently verified by this author. He was noted to have a left upper lobe pulmonary nodule 4 mm, which I recommend follow up for in 6 to 12 months given his history of smoking. He was counseled smoking cessation at length during the course of his hospital stay, is pretty contemplative. He was started on gabapentin low-dose as well as high-dose aspirin for 5 consecutive days until he should return to low-dose aspirin daily. His proton pump inhibitor was increased to twice daily. On the day of discharge, he did have what self described as bright red blood on his toilet paper prior to discharge however next BM was observed by this author without blood or melena. Day of discharge was notable for unwitnessed fall with resultant ASH. He was sent for a CT head and became aphasic with left sided weakness, left facial droop that was episodic, and right tongue deviation. He was evaluated by neurology who identified several additional discordant neurologic symptoms. He was kept overnight and he improved although his strength did not return to 5/5 in left leg. He was able to use his leg when distracted and moving in bed but not when directly tested. This seems less likely conversion disorder with discharge disposition back to senior care and notable secondary gain. The above was discussed with patient prior to his discharge At followup please; 1. Decrease aspirin to 5 days as indicated above. 2. Repeat CT chest solitary nodule in 6 to 12 months. 3. Recommend smoking cessation. 4. Can consider repeat inflammatory markers, CRP and ESR to monitor for increase if pain continues. 5. Can consider repeat EKG as an outpatient to monitor for change. 6. Consider cardiac catheterization. Reasons to return to the hospital including, but not limited to recurrent or worsening symptoms including continue or worsening chest pain, difficulty breathing, nausea, vomiting, lightheadedness, loss of consciousness, near loss of consciousness discussed with the patient. He acknowledged understanding. TIME SPENT: Greater than 60 minutes was spent on discharge of this patient, greater than half was spent [id number] with the patient. [id number]/[facility] #: [id number] EUN
[2017-10-11] MEDS: Ondansetron INJ* 2 MG/ML VIAL IV PRN (02:10)
[2017-10-11] MEDS: Mometasone/Formoter 100/5 MDI INH SCH (08:06)
[2017-10-11] MEDS ORDERED: Aspirin EC TAB* 325 MG PO SCH (09:00)
[2017-10-11] MEDS: Gabapentin CAP(*) 100 MG PO SCH (09:14)
[2017-10-11] MEDS: busPIRone TAB* 10 MG PO SCH (09:14)
[2017-10-11] MEDS: CMCS:Pantoprazole TAB (NF) 40 MG TAB PO SCH (09:14)
[2017-10-11 09:41] VITALS: BP 112/68
[2017-10-11] MEDS: Sucralfate TAB* 1 GM PO SCH (10:31)
== END 2017-10-11 13:20 | DRG 144 ==
LOC: ED 12:14 → MEDTELE 15:44 → EEVIPCON 15:44 → OBSVTOIN 10-08 15:57
PROVIDERS: ADMIT Hospitalist; ATTEND Internal Medicine
DX: R07.81 Pleurodynia (principal); Q87.40 Marfan syndrome, unspecified; Q21.1 Atrial septal defect; I69.354 Hemiplegia and hemiparesis following cerebral infarction affecting left non-dominant side; F43.10 Post-traumatic stress disorder, unspecified; R68.84 Jaw pain; K57.90 Diverticulosis of intestine, part unspecified, without perforation or abscess without bleeding; M48.00 Spinal stenosis, site unspecified; F41.9 Anxiety disorder, unspecified; I25.10 Atherosclerotic heart disease of native coronary artery without angina pectoris; I25.2 Old myocardial infarction; K20.9 Esophagitis, unspecified; W19.XXXA Unspecified fall, initial encounter; Y92.231 Patient bathroom in hospital as the place of occurrence of the external cause; R91.1 Solitary pulmonary nodule; Z86.718 Personal history of other venous thrombosis and embolism; Z79.82 Long term (current) use of aspirin; Z79.899 Other long term (current) drug therapy; Z76.5 Malingerer [conscious simulation]; F17.210 Nicotine dependence, cigarettes, uncomplicated; M51.36 Other intervertebral disc degeneration, lumbar region; M19.90 Unspecified osteoarthritis, unspecified site; R51 Headache
CPT/HCPCS: 36415; 70450; 70496; 70498; 71045; 71275; 78452; 80053; 82550; 82553; 83605; 83690; 83735; 83880; 84443; 84484; 85025; 85379; 85610; 85652; 85730; 86140; 86850; 86900; 86901; 93005; 93017; 94640; 94760; 99285; A9270-GY; A9502; G0378; J1650; J2270; J2405; J2785; J3475; J3480; Q9967

== ENCOUNTER 2017-10-27 18:34 | Inpatient (IN) | payer OTHER ==
[2017-10-27] MEDS ORDERED: Nitroglycerin 2% OINT* 1 GM PAK TOPICAL ONE (18:36)
[2017-10-27 19:10] LABS: ABS Basophils 0 10^3/ul (0-0.2); ABS Eosinophils 0 10^3/ul (0-0.6); ABS Lymphocytes 1.4 10^3/ul (1.0-4.8); ABS Monocytes 1.1 10^3/ul (0-0.8); ABS Nucleated RBC 0 10^3/ul; Eosinophil % 0.2 % (0-6); Hematocrit 38 % (42-52); Hemoglobin 12.9 g/dl (14.0-18.0); Lymphocyte % 12.1 % (25-47); Mean Corpuscular HGB Conc 34 g/dl (31-36); Mean Corpuscular Hemoglobin 30 pg (27-31); Mean Corpuscular Volume 89 fL (80-94); Nucleated Red Blood Cells % 0; Platelet Count 143 10^3/ul (150-450); Red Cell Distribution Width 13 % (10.5-15); White Blood Count 11.6 10^3/ul (3.5-10.8)
--- NOTE | 2017-10-27 19:13 | RAD ---
INDICATION: Chest pain. COMPARISON: Comparison is made with a prior study from October 07, 2017. TECHNIQUE: A portable view of the chest was obtained. FINDINGS: Cardiac and mediastinal contours appear to be within normal limits. The lungs are clear. No pleural effusion or pneumothorax is seen. IMPRESSION: NO EVIDENCE FOR ACUTE DISEASE.
[2017-10-27 19:29] LABS: EGFR Non-African American 100.7 (>60)
[2017-10-27] MEDS ORDERED: Morphine INJ* 4 MG/ML 1 ML SYRINGE (NEW SYRINGE VERSION) IV ONE ×2 (19:36→20:25)
[2017-10-27] MEDS ORDERED: Ondansetron INJ* 2 MG/ML VIAL IV ONE (19:36)
[2017-10-27] MEDS ORDERED: Morphine VIAL* 4 MG/ML VIAL (1 ml vial) IV ONE (19:49)
[2017-10-27] MEDS ORDERED: Ondansetron INJ* 2 MG/ML VIAL IV PRN (21:34)
[2017-10-27] MEDS ORDERED: Al Hydrox/Mg Hydrox/Simet LIQ* 30 ML UDC PO PRN (21:34)
[2017-10-27] MEDS ORDERED: Albuterol 2.5 MG/3 ML NEB.SOL* (0.083%) INH PRN (21:34)
[2017-10-27] MEDS ORDERED: Morphine INJ* 2 MG/ML 1 ML CARPUJECT IV PRN (21:34)
[2017-10-27] MEDS ORDERED: Acetaminophen TAB* 325 MG PO PRN (21:34)
[2017-10-27] MEDS ORDERED: Potassium Chlor TAB* 20 MEQ TAB.ER PO ONE (22:11)
[2017-10-27] MEDS: Heparin VIAL(*) 5000 UNITS/ML VIAL (FIVE THOUSAND) SUBCUT SCH (23:21)
--- NOTE | 2017-10-27 23:43 | HP ---
CC: Dr. Nicholson * ADMISSION HISTORY AND PHYSICAL: DATE OF ADMISSION: 10/27/17 ATTENDING HOSPITALIST: Kellen Benson DO * (DICTATED BY RORY SHAH) CHIEF COMPLAINT: Chest pain. HISTORY OF PRESENT ILLNESS: Manuel is a pleasant 42-year-old gentleman with past medical history significant for Marfan syndrome and associated comorbidities, who presented to the emergency room this afternoon with complaints of sudden onset of severe substernal chest pain. Patient was recently discharged from the hospital about 2 weeks ago after a brief hospitalization related to similar symptoms. He has history of 2 MIs back in 2005 and another one in 2014. He has been diagnosed with heart failure and has been diagnosed with Marfan syndrome at age 13. He has multiple other medical comorbidities that is associated with Marfan syndrome including coronary artery disease, asthma, history of DVT most recently in November 2014, patent foramen ovale that was diagnosed in his last echocardiogram, history of diverticulosis and irritable bowel, spinal stenosis, anxiety, degenerative disk disease, and history of CVA most recently in July 2017. Patient presented to the emergency room with acute onset of substernal chest pain that started this afternoon. He notes that he took 2 tablets of nitroglycerin 5 minutes apart that failed to relieve his chest pain. He notified his guards at the [facility] and patient was taken to medical attention. He notes to me that his blood pressure and heart rate was elevated and given his history of GA as well as recurrent chest pain, patient presented to the emergency room for further evaluation. He had laboratory workup that revealed normal troponin and had followup EKG that was read as borderline normal. There were no significant changes compared to recent EKG obtained 2 weeks ago. Given his ongoing symptoms and history of recurrent chest pain, we were asked to see the patient for admission to telemetry unit and to obtain cardiology consultation in the morning. During his last admission 2 weeks ago, patient had a stress test that was read as low risk. He continued to have chest pain every now and then; however, he denies any significant chest discomfort since his discharge from the hospital 2 weeks ago until onset of pain this afternoon. His EKG revealed some ST segment depression back 2 weeks ago; however, there was no ST changes on his EKG during this admission. His pain eventually was relieved with 2 mg of morphine as well as 4 mg of Zofran and it did well for his refractory chest pain. He was also given 1-inch paste of nitroglycerin that seemed to relieve his symptoms as well. At the time of admission, he appears to be stable and denied any recurrent chest pain. Dr. Sigala in the ED had contacted Dr. Nicholson and decision was made for him to be admitted for observation and to obtain a cardiac consult in the morning for possible cardiac catheterization in the morning. PAST MEDICAL HISTORY: As mentioned above significant for Marfan syndrome, which was diagnosed at age 13. He also had associated comorbidities including congestive heart failure, coronary artery disease, history of GA, TIA, and CVA. He also has history of asthma, DVT back in 2015, congenital anomalies including patent foramen ovale and spinal stenosis. He also has history of anxiety, diverticulitis, posttraumatic stress disorder, osteoarthritis, and degenerative disk disease. PAST SURGICAL HISTORY: Patient has never had any cardiac catheterization in the past. He is status post upper endoscopy back in June of last year after a brief episode of hematemesis. His EGD showed multiple ulcer and was treated for fungal infection and using Carafate for PUD as well. CURRENT MEDICATIONS: His medications at home include: 1. Albuterol sulfate 108 mcg 1 inhaler daily. 2. Aspirin 81 mg p.o. daily. 3. Atorvastatin 10 mg p.o. q.h.s. 4. Buspirone tablet 20 to 30 mg p.o. b.i.d. 5. Advair Diskus 100/50 one puff inhaled b.i.d. 6. Neurontin 100 mg p.o. t.i.d. 7. Atarax 100 mg p.o. q.h.s. 8. Metoprolol 50 mg p.o. daily. 9. Mirtazapine 45 mg p.o. q.h.s. 10. Omeprazole 20 mg p.o. b.i.d. 11. Prazosin 2 mg p.o. daily. 12. Carafate 1 g p.o. q.i.d. ALLERGIES: He is allergic to ACETAMINOPHEN, HYDROCODONE, LATEX, NATURAL RUBBER , and MECLIZINE. FAMILY HISTORY: Significant for both GA and coronary artery disease in maternal and paternal families as well as history of Marfan syndrome in his maternal grandfather. SOCIAL HISTORY: Patient is a resident of the [facility]. He continued to smoke 1 pack per day. He denies alcohol intake or illicit drug use. REVIEW OF SYSTEMS: See HPI, otherwise 14 points review of systems was essentially negative. PHYSICAL EXAMINATION GENERAL: He is a pleasant, healthy-appearing, middle-aged gentleman, in no acute distress or discomfort at the time of admission. VITAL SIGNS: Most recent set of vitals was temperature of 98.9, pulse of 106, respiration of 16, O2 sat of 97% on room air, and blood pressure of 120/66. HEENT: Sclerae anicteric. PERRLA. EOMs intact. Oropharynx pink and moist with no exudate. Facial feature consistent with Marfan syndrome with enlarged mandibles noted. NECK: Supple. Trachea midline. No cervical adenopathy, thyromegaly, or JVD. LUNGS: Clear to auscultation bilaterally. HEART: Sinus tachycardia noted with no rubs, murmurs, or gallops. BACK: With normal curvature. No CVA tenderness. ABDOMEN: Soft, nontender, and nondistended. No hernias, masses, or hepatosplenomegaly. No guarding, rigidity, or rebound tenderness noted. RECTAL: Deferred at this time. EXTREMITIES: Without cyanosis, clubbing, or edema. NEUROLOGIC: Grossly intact. LABORATORY WORKUP: CBC done today revealed white count of 11,600, hemoglobin 12.9, hematocrit of 38, and platelets of 143. His chemical panel with elevated lactic acid of 3.4, sodium of 139, potassium 3.2, chloride 104, CO2 25, BUN 13, and creatinine 0.8. His glucose was 136. LFTs, C-reactive protein were all within normal limits. ACCESSORY DIAGNOSTIC DATA: Patient had chest x-ray earlier this evening that revealed no acute cardiopulmonary changes. His EKG was evaluated and read as sinus tachycardia with no significant abnormalities. IMPRESSION: A 42-year-old gentleman with a complicated past medical history due to his diagnosis with Marfan syndrome since he was 13 with past medical history including coronary artery disease, cerebrovascular accident, asthma, myocardial infarction, deep venous thrombosis and spinal stenosis, who presented to the emergency room with acute onset of substernal chest pain since this afternoon that seems to be relieved with nitroglycerin and morphine. PLAN: 1. Chest pain. Patient will be admitted to the telemetry unit to rule out acute coronary syndrome. We will maintain him with IV hydration, keep him n.p.o. after midnight as instructed in anticipation for possible cardiac catheterization in the morning. We will keep close observation of his blood pressure and vitals. We will also provide nitroglycerin and morphine to take as needed for chest pain. He appears to be hemodynamically stable at this point. 2. Hypertension. We will maintain him on his home antihypertensive medication. 3. Asthma. We will maintain him on his Ventolin and use albuterol as needed nebulizer for shortness of breath. 4. Anxiety disorder. We will continue his BuSpar 20 mg twice a day as prescribed. 5. Marfan syndrome. Supportive care. 6. DVT prophylaxis. Will use subcu heparin. 7. Code status. Patient is a full code. 8. Hypokalemia. We will replace his potassium. Again, the patient will be admitted for observation to the telemetry unit, awaiting cardiac consultation in the morning for possible cardiac catheterization. The patient understand and agreed to plans. RORY SHAH [id number]/CPS #: [id number] MTDD
[2017-10-27] MEDS: NS 0.9% 1000 ML* 1,000 ML IV SCH (23:52)
[2017-10-28] MEDS: Morphine VIAL* 4 MG/ML VIAL (1 ml vial) IV PRN ×2 (02:01→07:41)
[2017-10-28] MEDS: Heparin VIAL(*) 5000 UNITS/ML VIAL (FIVE THOUSAND) SUBCUT SCH ×2 (05:38→13:24)
[2017-10-28] MEDS: NS 0.9% 1000 ML* 1,000 ML IV SCH (07:43)
[2017-10-28] MEDS: Albuterol HFA INHALER* 8 gm MDI INH SCH (08:08)
[2017-10-28] MEDS: Mometasone/Formoter 100/5 MDI INH SCH ×2 (08:09→21:17)
[2017-10-28] MEDS: Sucralfate TAB* 1 GM PO SCH ×4 (08:46→21:00)
[2017-10-28] MEDS: Metoprolol Tartrate TAB* 50 mg PO SCH (08:46)
[2017-10-28] MEDS: Gabapentin CAP(*) 100 MG PO SCH ×3 (08:46→20:56)
[2017-10-28] MEDS: busPIRone TAB* 30 MG PO SCH ×2 (08:52→20:57)
[2017-10-28] MEDS ORDERED: Omeprazole CAP* 20 MG PO SCH (09:00)
[2017-10-28] MEDS ORDERED: Aspirin EC TAB* 81 MG TAB.EC PO SCH (09:00)
[2017-10-28] MEDS ORDERED: Potassium Chlor TAB* 20 MEQ TAB.ER PO ONE (09:53)
[2017-10-28] MEDS: Nitroglycerin TAB 0.4 MG* 0.4 MG TAB SL PRN ×2 (10:41→10:50)
[2017-10-28] MEDS ORDERED: Pantoprazole IV* 40 MG IV SCH (12:00)
--- NOTE | 2017-10-28 15:11 | PN ---
Subjective Date of Service: 10/28/17 Interval History: Pt continues to c/o chest pain that is worse with deep breathing and change in position and requests morphine only. Denies abd pain , melena or BRBPR Objective Active Medications: Al Hydrox/Mg Hydrox/Simethicone (Maalox Plus*) 30 ml PO Q6H PRN PRN Reason: INDIGESTION Last Admin: 10/28/17 11:32 Dose: 30 ml Albuterol (Ventolin 2.5 Mg/3 Ml Neb.Eufemia*) 2.5 mg INH [id number] AWAKE PRN PRN Reason: sob/wheezing Albuterol (Ventolin Hfa Inhaler*) 1 puff INH DAILY [facility] Last Admin: 10/28/17 08:08 Dose: 1 puff Aspirin (Aspirin Ec Tab*) 81 mg PO DAILY [facility] Last Admin: 10/28/17 08:46 Dose: 81 mg Atorvastatin Calcium (Lipitor*) 10 mg PO BEDTIME [facility] Buspirone HCl (Buspar Tab*) 30 mg PO BID [facility] Last Admin: 10/28/17 08:52 Dose: 30 mg Gabapentin (Neurontin Cap(*)) 100 mg PO TID [facility] Last Admin: 10/28/17 13:01 Dose: 100 mg Heparin Sodium (Porcine) (Heparin Vial(*)) 5,000 units SUBCUT Q8HR [facility] Last Admin: 10/28/17 13:24 Dose: Not Given Hydroxyzine HCl (Atarax Tab*) 100 mg PO BEDTIME [facility] Sodium Chloride (Ns 0.9% 1000 Ml*) 1,000 mls @ 125 mls/hr IV PER RATE [facility] Last Admin: 10/28/17 07:43 Dose: 125 mls/hr Metoprolol Tartrate (Lopressor Tab*) 50 mg PO QAM [facility] Last Admin: 10/28/17 08:46 Dose: 50 mg Mirtazapine (Remeron Tab*) 45 mg PO BEDTIME [facility] Mometasone Furoate/Formoterol Fumar (Dulera 100/5 Mdi*) 1 puff INH BID [facility] Last Admin: 10/28/17 08:09 Dose: 1 puff Nitroglycerin (Nitroglycerin Tab 0.4 Mg*) 0.4 mg SL Q5M PRN PRN Reason: ANGINA Last Admin: 10/28/17 10:50 Dose: 0.4 mg Ondansetron HCl (Zofran Inj*) 4 mg IV Q4H PRN PRN Reason: NAUSEA/VOMITING Pantoprazole Sodium (Protonix Iv*) 40 mg IV DAILY [facility] Last Admin: 10/28/17 13:02 Dose: 40 mg Prazosin HCl (Minipress Cap*) 2 mg PO BEDTIME [facility] Sucralfate (Carafate*) 1 gm PO QID ACHS [facility] Last Admin: 10/28/17 11:32 Dose: 1 gm Oxygen Devices in Use Now: None Appearance: 42 yo M in nAD, aAOx3 Eyes: No Scleral Icterus, PERRLA Ears/Nose/Mouth/Throat: NL Teeth, Lips, Gums, Mucous Membranes Moist Neck: NL Appearance and Movements; NL JVP, Trachea Midline Respiratory: Symmetrical Chest Expansion and Respiratory Effort, Clear to Auscultation Cardiovascular: NL Sounds; No Murmurs; No JVD, RRR Abdominal: NL Sounds; No Tenderness; No Distention, No Hepatosplenomegaly Lymphatic: No Cervical Adenopathy Extremities: No Edema, No Clubbing, Cyanosis Skin: No Rash or Ulcers, No Nodules or Sclerosis Neurological: Alert and Oriented x 3, NL Muscle Strength and Tone Result Diagrams: 10/27/17 18:52 10/27/17 18:52 Assess/Plan/Problems-Billing Assessment: 42 yo prisoner with h/o bipolar disorder, PTCD, conversion disorder , borderline personality, espohagitis/gastritis, chronic CP, marfan syndrome presents with CP - Patient Problems (1) Esophagitis Comment: suspect its the source of pain. Hb slightly lower than prior, but pt denies any melena, BRBPR, stool guiaiac ordered Continue carafate QID PPI BID D/c ASA Pt is already scheduled for outpatient EGD (2) History of CVA (cerebrovascular accident) Comment: no h/o CVA, malingering in the past (3) History of coronary artery disease Comment: negative for h/o CAD from review of med record. Cardiac angiogram in neg for CAD at [facility] (4) Pulmonary nodule Comment: 4 cm KAI. Needs repeat CT as outpatient 6-12 months with smoking history (5) Chest pain, pleuritic Comment: likely due to esophagitis ASA held No evidence of CAD. Echo pending (6) DVT prophylaxis Comment: SCD's Status and Disposition: OBV
--- NOTE | 2017-10-28 15:12 | ECHO ---
Patient: FLAVIO ACUNA [id number] [facility] Rec#: [id number] : 1975 Date: 10/28/2017 Age: 42y Height: 200.66 cm / 79.0 in Weight: 121.11 kg / 266.9 lbs Sex: M BSA: 2.58 Room#: 453 Admit Date#: 10/27/2017 Type: Inpatient Referring: Pricila Khoury MD Reading: Libby Bustillos MD Assistant Golf Professional: Mariam HigginbothamRDCS,RDMS Transthoracic Echocardiogram Indication: CP BP: 122/71 HR: 75 Rhythm: NSR Findings History: Marfans, multiple MIs, PFO, CHF, CVA, TIA, DVT Technical Comments: The study quality is good. Left Ventricle: The left ventricular chamber size is mildly dilated. There is no left ventricular hypertrophy. Global left ventricular wall motion and contractility are within normal limits. The estimated ejection fraction is 50-55%. Normal left ventricular diastolic filling is observed. Left Atrium: The left atrium is mildly dilated. Right Ventricle: The right ventricular chamber size and systolic function are within normal limits. Right Atrium: The right atrium is moderately dilated. There is evidence of an atrial septal aneurysm. Patient has a known patent foramen ovale. Aortic Valve: The aortic valve is trileaflet. Systolic excursion of the aortic valve is normal. There is a trace of aortic regurgitation. There is no evidence of aortic stenosis. Mitral Valve: The mitral valve leaflets are mildly thickened. There is a trace of mitral regurgitation. There is no evidence of mitral stenosis. Tricuspid Valve: The tricuspid valve leaflets are normal. There is trace to mild tricuspid regurgitation. No pulmonary hypertension is noted. Pulmonic Valve: The pulmonic valve appears normal. There is mild pulmonic regurgitation. Pericardium: There is no significant pericardial effusion. Aorta: There is no dilatation of the ascending aorta. There is no dilatation of the aortic arch. There is mild dilatation of the aortic root. Pulmonary Artery: The main pulmonary artery is not well visualized. Venous: The inferior vena cava is dilated. There is a greater than 50% respiratory change in the inferior vena cava dimension. Conclusions The left ventricular chamber size is mildly dilated. Global left ventricular wall motion and contractility are within normal limits. The estimated ejection fraction is 50-55%. Normal left ventricular diastolic filling is observed. The right ventricular chamber size and systolic function are within normal limits. The left atrium is mildly dilated. There is a trace of aortic regurgitation. There is a trace of mitral regurgitation. There is trace to mild tricuspid regurgitation. No pulmonary hypertension is noted. There is mild dilatation of the aortic root: 3.7 cm. There is no dilatation of the ascending aorta. Prior echo not available at this time to compare. Measurements Name Value Normal Range RVIDd (AP) 2D 3.4 cm (0.9 - 2.6) RVDdMajor (2D) 4.8 cm (2.2 - 4.4) RAd ISD 4CH 5.7 cm (3.4 - 4.9) RA (A4C)W 4.9 cm (2.9 - 4.6) IVSd (2D) 1 cm (0.6 - 1) LVPWd (2D) 1 cm (0.6 - 1) LVIDd (2D) 5.7 cm (3.6 - 5.4) LVIDs (2D) 3.4 cm - LV FS (2D) 41 % (25 - 45) Aortic Annulus 2.3 cm (1.4 - 2.6) Ao root diameter (2D) 3.7 cm (2.1 - 3.5) Ascending Ao 3 cm (2.1 - 3.4) Aortic arch 2.6 cm (1.8 - 3.4) LA dimension (AP) 2D 4.3 cm (2.3 - 3.8) LAd ISD 4CH 6.3 cm (2.9 - 5.3) LA ISD 4CH W 4.8 cm (2.5 - 4.5) Name Value Normal Range LA ESV SP 4CH (A/L) 99.5 ml - LA ESV SP 2CH (A/L) 99.55 ml - LA ESV BP (A/L) 99.61 ml - LA ESV BP (A/L) index 39 ml/m2 - LA ESV SP 4CH (MOD) 89.91 ml - LA ESV SP 2CH (MOD) 92.78 ml - Name Value Normal Range MV E-wave Vmax 1 m/sec - MV deceleration time 213 msec - MV A-wave Vmax 0.8 m/sec - MV E:A ratio 1.3 ratio - P. vein S-wave Vmax 0.6 m/sec - P. vein D-wave Vmax 0.5 m/sec - P. vein S:D Vmax ratio 1.1 ratio - P. vein A-wave duration 107 msec - LV septal e' Vmax 0.09 m/sec - LV lateral e' Vmax 0.12 m/sec - LV E:e' septal ratio 11 ratio - LV E:e' lateral ratio 8 ratio - Name Value Normal Range AV Vmax 1.6 m/sec - AV VTI 32.3 cm - AV peak gradient 10 mmHg - AV mean gradient 5.8 mmHg - LVOT Vmax 1.2 m/sec - LVOT VTI 25.3 cm - LVOT peak gradient 6 mmHg - LVOT mean gradient 3 mmHg - KARIE Vmax 1.1 m/sec - Name Value Normal Range MV Vmax 1.2 m/sec - MV VTI 39.5 cm - MV peak gradient 6 mmHg - MV mean gradient 2.5 mmHg - MV PHT 75 msec - MVA (PHT) 2.9 cm2 - Name Value Normal Range TR Vmax 2.6 m/sec - TR peak gradient 27 mmHg - RAP 3 mmHg - RVSP 30 mmHg - IVC diameter 2.3 cm - Name Value Normal Range PV Vmax 0.9 m/sec - PV peak gradient 3.3 mmHg -
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
--- NOTE | 2017-10-28 16:19 | HP ---
CC: [facility] * HISTORY AND PHYSICAL: DATE OF ADMISSION: 10/28/17 ADDENDUM: Please note in addendum to the patient's history and physical, I would like to dictate my review of the patient's medical records from the past several years of his hospital stay in various medical facilities in [facility]. Chronologically looking at medical records, the patient was seen in December of 2010 at [facility] in [place], [place], for hypokalemia and chest pain. At that point, the patient was noted to have a history of depression, asthma, and chronic pain and no mention of history of stroke or heart disease. He had a Persantine cardiac stress test that showed no evidence of induced ischemia or EKG changes. The patient had occasional PACs and junctional rhythm changes. In the year of 2013, the patient was seen for leg edema and he was noted with superficial [id number] phlebitis of the left soleal vein. He was at that point placed on aspirin at 325 mg daily. His most recent several hospitalizations are at [facility] when the patient started being admitted in May of 2017. On 06/10/17, the patient was seen for chest pain and abdominal pain. During that time, he was noted to have coffee-ground emesis and his upper endoscopy showed grade D distal esophagitis that was positive for anthony esophagitis and mild gastritis. The patient was placed on Diflucan for approximately 14 days afterwards. On 07/14/17, the patient was admitted again to [facility] for chest pain. At that point, the unclear etiology of chest pain was esophagitis. He had an upper endoscopy a repeat one on 07/16/17, which showed grade B esophagitis with no bleeding and diffuse erythematous mucosa without bleeding in the gastric body or the gastric antrum and one non-bleeding linear gastric ulcer at the gastric antrum. The pathology was negative for Helicobacter pylori and the gastric ulcer biopsy showed reactive gastropathy pattern. On the most recent hospital stay, the patient was at [facility] from 08/05/17 to 08/16/17 for concern for acute stroke, which was likely due to somatization. At that point, the patient seemed to have left-sided weakness with negative workup. Please note that specifically, the patient's cardiac workup in the past several years included: 1. Negative Persantine cardiac stress test in 2010. 2. On 04/20/17, the patient had stress echocardiogram at [facility] , which showed no evidence for ischemia and normal EF. 3. On 04/21/17, the patient had CT angiogram of the heart, which showed normal coronary artery CT angiogram of the heart with no findings of coronary artery disease. 4. The patient also had a normal cardiac stress test obtained at our facility in September of 2017. 5. Please also note, the patient had an outpatient psychiatric evaluation at [facility] on 08/13/17, which showed that the patient has a history of PTSD; bipolar disorder, type 2; borderline personality disorder; conversion disorder; panic disorder. The patient was noted to have history of somatization and needed further psychiatric visits as outpatient. [id number]/[facility] #: [id number] EUN
[2017-10-28] MEDS: Omeprazole CAP* 20 MG PO SCH (16:48)
[2017-10-28] MEDS ORDERED: Atorvastatin* 10 MG TAB PO SCH (21:00)
[2017-10-28] MEDS ORDERED: Prazosin CAP* 1 MG PO SCH (21:00)
[2017-10-28] MEDS ORDERED: Mirtazapine TAB* 15 MG PO SCH (21:00)
[2017-10-28] MEDS ORDERED: hydrOXYzine HCL TAB* 50 MG PO SCH (21:00)
[2017-10-29 05:45] LABS: EGFR Non-African American 135.4 (>60)
[2017-10-29] MEDS: Sucralfate TAB* 1 GM PO SCH ×2 (08:08→11:55)
[2017-10-29] MEDS: Metoprolol Tartrate TAB* 50 mg PO SCH (08:08)
[2017-10-29] MEDS: Gabapentin CAP(*) 100 MG PO SCH (08:08)
[2017-10-29] MEDS: Omeprazole CAP* 20 MG PO SCH (08:08)
[2017-10-29] MEDS: busPIRone TAB* 30 MG PO SCH (08:09)
[2017-10-29] MEDS: Mometasone/Formoter 100/5 MDI INH SCH (08:21)
[2017-10-29] MEDS: Albuterol HFA INHALER* 8 gm MDI INH SCH (08:21)
[2017-10-29 08:23] VITALS: BP 101/50
--- NOTE | 2017-10-29 13:24 | DS ---
CC: Dr. Pinzon, patient's primary care providerat [facility]; Dr. Bustillos; Dr. Pichardo.* DISCHARGE SUMMARY: DATE OF ADMISSION: 10/27/17 DATE OF DISCHARGE: 10/29/17 PRIMARY CARE PROVIDER: Dr. Pinzon, a physician who is taking care of patient in [facility]. DISCHARGE DIAGNOSIS: Pleuritic chest pain, which is chronic dating back to 2010. At this point, I believe it is related to resolving esophagitis of which patient was diagnosed in [facility] at the end of 2016 and beginning of 2017. Recurrent pleuritic chest pain with extensive evaluations in the past 7 years including negative stress test at [facility] in December of 2010. Patient also had a negative stress echocardiogram at [facility] on 04/20/17. A day later on 04/21/17, the patient had a CT angiogram of the heart that showed normal coronary arteries. CT angiogram of the heart with no findings of coronary artery disease. Patient also had normal cardiac stress test obtained at our facility in September 2017. SECONDARY DIAGNOSES: 1. History of anthony esophagitis diagnosed in [facility] in May 2017. According to an upper endoscopy at [facility] in July 2017, the esophagitis was improving. 2. Patient has a history of conversion disorder as well as malingering with history of symptoms of recurrent left-sided weakness that occurred at [facility] in July 2017, as well as at [facility] in September 2017 during his hospital stay. 3. History reported by patient of Marfan syndrome. No evidence of Marfan syndrome in medical records from [facility] and [facility]. 4. History of asthma. 5. History of superficial vein phlebitis below the knee in 2013 noted at [place] during patient's hospital stay. At that point, patient was placed on aspirin. 6. History of posttraumatic stress disorder. 7. History of borderline personality. 8. History of bipolar disease. MEDICATIONS AT DISCHARGE: Include: 1. Albuterol inhaler 2 puffs every 4 hours p.r.n. 2. Lipitor 10 mg at bedtime. 3. BuSpar 30 mg at bedtime. 4. Advair 115/21 one puff b.i.d. 5. Metoprolol tartrate 50 mg daily. 6. Remeron 45 mg at bedtime. 7. Prilosec 20 mg b.i.d. 8. Prazosin 2 mg at bedtime p.r.n. 9. Carafate 1 g p.o. 4 times a day with meals. LABORATORY DATA AND STUDIES PERFORMED DURING THE HOSPITAL STAY: Included: On 10/29/17: Sodium of 138, potassium 3.7, chloride 105, carbon dioxide 27, BUN 13 , creatinine 0.65. CBC obtained on admission showed white blood cell count 11.6 , hemoglobin 12.9, hematocrit 38, MCV of 80 and platelets of 143. Patient's troponin was 0 throughout his hospital stay. CONSULTATION: Consultation was obtained from Dr. Bustillos from Cardiology. Transthoracic echocardiogram obtained on 10/28/17 showed EF of 50% to 55% with global left ventricular wall motion contractility within normal limits. The left ventricular chamber is mildly dilated. There was trace aortic regurgitation and trace mitral regurgitation and trace to mild tricuspid regurgitation. There was mild dilatation of the aortic root at 3.7 cm. Please note that patient had a CTA of the chest for the same problem when he was admitted in September 2017, and at that point, it was negative for PE. That was obtained on 10/07/17. HOSPITALIZATION COURSE: Manuel Arroyo is a 42-year-old male who presented from [facility], who reported a history of stroke and heart disease and the need of cardiac catheterization when he presented with crushing chest radiating to his bilateral jaw on 10/28/17. Patient was seen by Dr. Bustillos in consultation and I refer you to her evaluation. Shortly, patient's cardiac workup was negative. That also included extensive workup according to medical records that we obtained from [facility] and [facility] that showed that patient had no evidence of heart disease and repeated evaluations that were negative for ischemia. Patient did have a history of anthony esophagitis at the end of 2016 that appeared to be resolving according to endoscopy obtained at [facility] in July 2017. Patient refused to be treated for the chest pain with any other medications apart from narcotics. He was requesting morphine. Unfortunately, initially he was unable to sign consent while on morphine for possibility of cardiac evaluation, and at that point, narcotics were discontinued. Later on, it became apparent that the patient is not an appropriate candidate for cardiac catheterization since at this point is basically not indicated for this patient. Furthermore, when I questioned patient about the duration of his chest pain with the support of medical records, he did agree that he has been having the chest pain for at least several years now, that is dating back to 2010. On the day of discharge, patient was recommended a bland diet, but stated that "that will not help." He also mentioned to me "I will be back in 2 weeks." That is consistent with prior evaluations in [facility] where the patient was noted to be unhappy with discharge and prior discharge from our facility when told that he is going home, developed a left-sided weakness that was noted to be malingering as per Dr. Pichardo's consultation in September 2017. Please note that this is a short summary of the patient's hospitalization. Please refer to further medical records for details. TIME SPENT: Approximately 45 minutes was spent on patient's discharge. [id number]/[facility] #: [id number] ANISHD
== END 2017-10-29 14:15 | DRG 242 ==
LOC: ED 18:34 → EEVIPCON 21:34 → MEDTELE 21:34 → OBSVTOIN 10-28 14:30
PROVIDERS: ADMIT Pediatrics; ATTEND Internal Medicine
DX: B37.81 Candidal esophagitis (principal); Q87.40 Marfan syndrome, unspecified; Q21.1 Atrial septal defect; J45.909 Unspecified asthma, uncomplicated; M48.00 Spinal stenosis, site unspecified; K57.90 Diverticulosis of intestine, part unspecified, without perforation or abscess without bleeding; K58.9 Irritable bowel syndrome, unspecified; F31.9 Bipolar disorder, unspecified; F60.3 Borderline personality disorder; I08.3 Combined rheumatic disorders of mitral, aortic and tricuspid valves; I77.819 Aortic ectasia, unspecified site; F41.9 Anxiety disorder, unspecified; F17.210 Nicotine dependence, cigarettes, uncomplicated; I10 Essential (primary) hypertension; M47.9 Spondylosis, unspecified; F43.10 Post-traumatic stress disorder, unspecified; M19.90 Unspecified osteoarthritis, unspecified site; E87.6 Hypokalemia; G89.29 Other chronic pain; R91.1 Solitary pulmonary nodule; F44.4 Conversion disorder with motor symptom or deficit; Z76.5 Malingerer [conscious simulation]; Z88.8 Allergy status to other drugs, medicaments and biological substances; Z88.6 Allergy status to analgesic agent; Z86.718 Personal history of other venous thrombosis and embolism; Z91.040 Latex allergy status; Z82.49 Family history of ischemic heart disease and other diseases of the circulatory system; Z88.5 Allergy status to narcotic agent; Z91.048 Other nonmedicinal substance allergy status; Z84.81 Family history of carrier of genetic disease; Z88.2 Allergy status to sulfonamides
CPT/HCPCS: 36415; 71045; 80048; 80053; 83605; 84484; 85025; 86140; 93005; 93306; 94640; 94760; 99285; 99406; A9270-GY; J1644; J2270; J2405

== ENCOUNTER 2018-04-16 15:47 | Emergency (ER) | payer MEDICAID, OTHER ==
--- NOTE | 2018-04-16 16:57 | ED ---
HPI Chest Pain - HPI Summary HPI Summary: Patient is a 43 y/o M w/ c/o left leg edema, SOB this morning and chest pain later at around 1200. Chest pain is described as sharp/stabbing and is noted to be left-sided. He reports taking 0.4 mg nitro when being transported to the ED but denies any relief in Sx. Chest pain is not aggravated by anything. 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 He also reports having bronchitis recently. Patient states he is not on blood thinners presently. When he had DVT in 2014, he states he was on xarelto for six months but his PCP took him off of it due to his other PHMx. On triage, pain is rated 8/10. Home medications and allergies are reviewed. - History of Current Complaint Chief Complaint: EDChestPainROMI Time Seen by Provider: 04/16/18 16:19 Hx Obtained From: Patient Onset/Duration: Started Hours Ago, Still Present Timing: Constant Current Severity: Severe - 8/10 Pain Intensity: 8 Pain Scale Used: 0-10 Numeric - 8/10 Chest Pain Location: Discrete at: - left side Character: Sharp/Stabbing Aggravating Factor(s): Nothing Alleviating Factor(s): Nothing Associated Signs and Symptoms: Positive: Chest Pain, Shortness of Breath, Edema - LLE - Additional Pertinent History Primary Care Physician: LUCAS - Allergy/Home Medications Allergies/Adverse Reactions: Allergies Allergy/AdvReac Type Severity Reaction Status Date / Time acetaminophen Allergy Swelling Verified 10/27/17 19:11 hydrocodone Allergy Hives Verified 10/27/17 19:11 Latex, Natural Rubber Allergy Hives Verified 10/27/17 19:11 meclizine Allergy Hives Verified 10/27/17 19:11 neomycin Allergy See Comment Verified 10/27/17 19:11 NSAIDS (Non-Steroidal Allergy Unknown Verified 10/27/17 19:11 Anti-Inflamma Reaction Details oxycodone Allergy Hives Verified 10/27/17 19:11 promethazine [From Phenergan] Allergy Swelling Verified 10/27/17 19:11 rifampin Allergy See Comment Verified 10/27/17 19:11 Sulfa (Sulfonamide Allergy See Comment Verified 10/27/17 19:11 Antibiotics) tamsulosin [From Flomax] Allergy See Comment Verified 10/27/17 19:11 tramadol [From Ultram] Allergy Hives Verified 10/27/17 19:11 Home Medications: Home Medications Albuterol HFA INHALER* [Ventolin HFA Inhaler*] 1 puff INH Q6H PRN 04/16/18 [ History Confirmed 04/16/18] Aspirin EC TAB* [Ecotrin EC Low Dose 81 MG*] 81 mg PO DAILY 04/16/18 [History Confirmed 04/16/18] PMH/Surg Hx/FS Hx/Imm Hx Endocrine/Hematology History: Denies: Hx Diabetes, Hx Thyroid Disease Cardiovascular History: Reports: Hx Angina, Hx Congestive Heart Failure, Hx Coronary Artery Disease, Hx Deep Vein Thrombosis, Hx Myocardial Infarction, Other Cardiovascular Problems/Disorders - pericarditis Denies: Hx Hypercholesterolemia, Hx Hypertension, Hx Peripheral Vascular Disease, Hx Valvular Heart Disease Respiratory History: Reports: Hx Asthma GI History: Reports: Hx Diverticulosis Musculoskeletal History: Reports: Hx Back Problems - degenitive disk disease, ruptured disk., Other Musculoskeletal History - spinal stenosis Sensory History: Reports: Hx Contacts or Glasses Denies: Hx Hearing Aid Opthamlomology History: Reports: Hx Contacts or Glasses Neurological History: Reports: Hx CVA Denies: Hx Headaches, Hx Seizures, Hx Transient Ischemic Attacks (TIA) Psychiatric History: Reports: Hx Anxiety - severe, Hx Post Traumatic Stress Disorder - Surgical History Surgery Procedure, Year, and Place: appendectomy, foot surgery - Immunization History Date of Influenza Vaccine: fall 2016 Infectious Disease History: No Infectious Disease History: Denies: Traveled Outside the [place] in Last 30 Days - Family History Known Family History: Positive: Cardiac Disease, Other - malignant hyperthermia Negative: Respiratory Disease, Seizure Disorder - Social History Alcohol Use: None Substance Use Type: Reports: None Smoking Status (MU): Light Every Day Tobacco Smoker Type: Cigarettes Review of Systems Positive: Chest Pain Positive: Shortness Of Breath Positive: Edema - LLE All Other Systems Reviewed And Are Negative: Yes Physical Exam - Summary Physical Exam Summary: Appearance: The patient is well-nourished in no acute distress and in no acute pain. Skin: The skin is warm and dry and skin color reflects adequate perfusion. HEENT: The head is normocephalic and atraumatic. The pupils are equal and reactive. The conjunctivae are clear and without drainage. Nares are patent and without drainage. Mouth reveals moist mucous membranes and the throat is without erythema and exudate. The external ears are intact. The ear canals are patent and without drainage. The tympanic membranes are intact. Neck: The neck is supple with full range of motion and non-tender. There are no carotid bruits. There is no neck vein distension. Respiratory: Chest is non-tender. Mild wheezing diffusely. Cardiovascular: Tachycardic. There is no murmur or rub auscultated. There is BLE ; pulses are symmetrical and equal. Abdomen: The abdomen is soft and non-tender. There are normal bowel sounds heard in all four quadrants and there is no organomegaly palpated. Musculoskeletal: There is no back tenderness noted. BLE is noted. Extremities have full range of motion. There is good capillary refill. There is no peripheral edema or calf tenderness elicited. Neurological: Patient is alert and oriented to person, place and time. The patient has symmetrical motor strength in all four extremities. Cranial nerves are grossly intact. Deep tendon reflexes are symmetrical and equal in all four extremities. Psychiatric: The patient has an appropriate affect and does not exhibit any anxiety or depression. Triage Information Reviewed: Yes Vital Signs On Initial Exam: Initial Vitals Temp Pulse Resp BP Pulse Ox 98.5 F 122 19 200/131 99 04/16/18 16:06 04/16/18 16:06 04/16/18 16:06 04/16/18 16:06 04/16/18 16:06 Vital Signs Reviewed: Yes Diagnostics - Vital Signs Vital Signs Temp Pulse Resp BP Pulse Ox 04/16/18 16:06 98.5 F 122 19 200/131 99 - Laboratory Result Diagrams: 04/16/18 17:06 04/16/18 17:06 Lab Statement: Any lab studies that have been ordered have been reviewed, and results considered in the medical decision making process. - CT CTA chest/thorax CT Interpretation: No Acute Changes CT Interpretation Completed By: Radiologist - No PE; this report was reviewed by ed physician. - Ultrasound No standard instances Ultrasound Interpretation: No Acute Changes Ultrasound Interpretation Completed By: ED Physician - venous doppler study of LLE: normal LLE duplex venous ultrasound; this report was reviewed by ed physician. - EKG 1635 Cardiac Rate: Tachycardia - rate of 104 BPM EKG Rhythm: Sinus Tachycardia ST Segment: Non-Specific - diffuse Re-Evaluation - Re-Evaluation First Eval Re-Evaluation Time: 22:16 Comment: Discussed results of labs and tests with patient; he will be discharged and is instructed to follow up with PCP in 1-2 days. Chest Pain Course/Dx - Course Course Of Treatment: Mr. Arroyo presented concerned that he might have a DVT or PE. He noticed left leg pain today and then chest pain which started during ambulance transport here. He has a history of DVT and Marfan syndrome. Here his vitals are stable and he had good bilateral pulses. CTA showed no acute pathology either with his aorta or PE. Venous Doppler of the left leg showed no DVT. Labs including a delayed troponin were negative. I recommended follow- up with the docs at the care home as I don't think anything dangerous is happening at this time. - Diagnoses Provider Diagnoses: Chest pain Discharge - Sign-Out/Discharge Documenting (check all that apply): Patient Departure - discharge - Discharge Plan Condition: Stable Disposition: LAW ENFORCEMENT/COURT Patient Education Materials: Chest Pain (ED) Referrals: Jeromy BOOGIE,Luis Silverman [Primary Care Provider] - 2 Days Additional Instructions: RETURN TO ED FOR ANY NEW OR WORSENING SYMPTOMS. FOLLOW UP WITH PRIMARY CARE PHYSICIAN IN 1-2 DAYS. - Billing Disposition and Condition Condition: STABLE Disposition: Law Enforcement/Court - Attestation Statements Document Initiated by Scribe: Yes Documenting Scribe: Luis Miguel Pena Provider For Whom Sancho is Documenting (Include Credential): Waylon Hammond MD Scribe Attestation: Luis Miguel Villalobos , scribed for Waylon Hammond MD on 04/16/18 at 2223. Scribe Documentation Reviewed: Yes Provider Attestation: The documentation as recorded by the Luis Miguel montiel accurately reflects the service I personally performed and the decisions made by me, Waylon Hammond MD
[2018-04-16 17:16] LABS: Hematocrit 38 % (42-52); Hemoglobin 12.7 g/dl (14.0-18.0); Mean Corpuscular HGB Conc 34 g/dl (31-36); Mean Corpuscular Hemoglobin 30 pg (27-31); Mean Corpuscular Volume 90 fL (80-94); Mean Platelet Volume 9.1 um3 (7.4-10.4); Platelet Count 132 10^3/ul (150-450); Red Blood Count 4.19 10^6/ul (4.00-5.40); Red Cell Distribution Width 14 % (10.5-15); White Blood Count 15.8 10^3/ul (3.5-10.8)
[2018-04-16 17:22] LABS: INR 1.17 (0.77-1.02)
[2018-04-16 17:48] LABS: ABS Basophils 0 10^3/ul (0-0.2); ABS Eosinophils 0 10^3/ul (0-0.6); ABS Lymphocytes 1.9 10^3/ul (1.0-4.8); ABS Monocytes 1.6 10^3/ul (0-0.8); ABS Neutrophils 12.2 10^3/ul (1.5-7.7); ABS Nucleated RBC 0 10^3/ul; Eosinophil % 0.1 % (0-6); Nucleated Red Blood Cells % 0
[2018-04-16] MEDS ORDERED: NS 0.9% 1000 ML* 1,000 ML IV ONE (17:49)
[2018-04-16] MEDS ORDERED: Potassium Chlor TAB* 20 MEQ TAB.ER PO ONE (17:49)
[2018-04-16] MEDS ORDERED: Iodixanol* (CONTRAST) 320 MG/ML 100 ML SDV IV ONE ×2 (18:08→18:44)
--- NOTE | 2018-04-16 19:28 | RAD ---
EXAM: CT Angiography Chest With Intravenous Contrast CLINICAL HISTORY: 43 years old, male; Pain; Chest pain; Right-sided chest pain; Additional info: Pt states right flank pain that radiates to the abdomen. Also having nausea. TECHNIQUE: Axial computed tomographic angiography images of the chest with intravenous contrast using pulmonary embolism protocol. All CT scans at this facility use at least one of these dose optimization techniques: automated exposure control; mA and/or kV adjustment per patient size (includes targeted exams where dose is matched to clinical indication); or iterative reconstruction. MIP reconstructed images were created and reviewed. Coronal and sagittal reformatted images were created and reviewed. CONTRAST: 186 mL of [id number] administered intravenously. COMPARISON: No relevant prior studies available. FINDINGS: Pulmonary arteries: Unremarkable. No pulmonary embolism. Aorta: No acute findings. No thoracic aortic aneurysm. Lungs: Unremarkable. No mass. No consolidation. Pleural space: Unremarkable. No significant effusion. No pneumothorax. Heart: Unremarkable. No cardiomegaly. No significant pericardial effusion. No evidence of RV dysfunction. Bones/joints: No acute fracture. No dislocation. Soft tissues: Unremarkable. Lymph nodes: Unremarkable. No enlarged lymph nodes. IMPRESSION: No pulmonary embolism. To contact [facility] with a general question: [facility] - [phone] For direct physician to physician contact: Physician Hotline - [phone] [facility] ([facility] Facility ID #[id number])
--- NOTE | 2018-04-16 22:12 | RAD ---
EXAM: US Duplex Left Lower Extremity Veins CLINICAL HISTORY: 43 years old, male; Pain; Leg, lower; Left TECHNIQUE: Real-time duplex ultrasound scan of the left lower extremity veins integrating B-mode two-dimensional vascular structure, Doppler spectral analysis, color flow Doppler imaging and compression. COMPARISON: No relevant prior studies available. FINDINGS: Deep veins: Unremarkable. No DVT in the visualized common femoral, femoral, proximal deep femoral or popliteal veins. The veins demonstrate normal color flow, are normally compressible, with normal phasic flow and/or augmentation response. Superficial veins: Unremarkable. No thrombus in the visualized great saphenous vein. Soft tissues: No acute findings. No popliteal cyst. IMPRESSION: Normal left lower extremity duplex venous ultrasound. To contact [facility] with a general question: [facility] - [phone] For direct physician to physician contact: Physician Hotline - [phone] [facility] ([facility] Facility ID #[id number])
[2018-04-16 22:42] VITALS: BP 125/77
== END 2018-04-16 22:40 ==
LOC: ED 15:47
DX: R07.9 Chest pain, unspecified (principal); R06.02 Shortness of breath; R60.0 Localized edema; F17.210 Nicotine dependence, cigarettes, uncomplicated
CPT/HCPCS: 36415; 71275; 80053; 83605; 84484; 85025; 85610; 93005; 96360; 99283; A9270-GY; Q9967

== ENCOUNTER 2018-11-16 14:01 | Emergency (ER) | payer OTHER ==
[2018-11-16] MEDS ORDERED: NS 0.9% 1000 ML** 1,000 ML IV ONE ×2 (14:32→17:37)
--- NOTE | 2018-11-16 14:34 | ED ---
Abdominal Pain/Male - HPI Summary HPI Summary: Pt is a 43 y/o M presenting to the ED with a chief complaint of abd pain located in the RUQ. He reports constipation for 1.5wks, nausea, vomiting dark emesis, and mid-sternal chest pain. The chest pain came on this morning around 1130 when he was just lying down, and it radiates into his R shoulder and back. He denies fevers. - History of Current Complaint Chief Complaint: EDAbdPain Stated Complaint: GAL BLADDER ISSUE PER PT Time Seen by Provider: 11/16/18 14:24 Hx Obtained From: Patient Onset/Duration: Gradual Onset, Lasting Hours, Still Present Timing: Constant, Lasting Hours Severity Initially: Moderate Severity Currently: Severe Pain Intensity: 10 Pain Scale Used: 0-10 Numeric Location: Discrete At: RUQ Radiates: No Aggravating Factor(s): Nothing Alleviating Factor(s): Nothing Associated Signs And Symptoms: Positive: Chest Pain, Constipation, Nausea, Vomiting. Negative: Fever - Allergies/Home Medications Allergies/Adverse Reactions: Allergies Allergy/AdvReac Type Severity Reaction Status Date / Time acetaminophen Allergy Swelling Verified 10/27/17 19:11 hydrocodone Allergy Hives Verified 10/27/17 19:11 Latex, Natural Rubber Allergy Hives Verified 10/27/17 19:11 meclizine Allergy Hives Verified 10/27/17 19:11 neomycin Allergy See Comment Verified 10/27/17 19:11 NSAIDS (Non-Steroidal Allergy Unknown Verified 10/27/17 19:11 Anti-Inflamma Reaction Details oxycodone Allergy Hives Verified 10/27/17 19:11 promethazine [From Phenergan] Allergy Swelling Verified 10/27/17 19:11 rifampin Allergy See Comment Verified 10/27/17 19:11 Sulfa (Sulfonamide Allergy See Comment Verified 10/27/17 19:11 Antibiotics) tamsulosin [From Flomax] Allergy See Comment Verified 10/27/17 19:11 tramadol [From Ultram] Allergy Hives Verified 10/27/17 19:11 Home Medications: Home Medications Albuterol HFA INHALER* [Ventolin HFA Inhaler*] 2 puff INH BID 11/16/18 [History Confirmed 11/16/18] Amitriptyline TAB* [Elavil TAB*] 50 mg PO BEDTIME 11/16/18 [History Confirmed ] Docusate CAP* [Colace Cap*] 200 mg PO DAILY 11/16/18 [History Confirmed 11/16/18 ] Lactulose* 30 ml PO DAILY 11/16/18 [History Confirmed 11/16/18] PMH/Surg Hx/FS Hx/Imm Hx Previously Healthy: No Endocrine/Hematology History: Denies: Hx Anticoagulant Therapy, Hx Diabetes, Hx Thyroid Disease Cardiovascular History: Reports: Hx Angina, Hx Congestive Heart Failure, Hx Coronary Artery Disease, Hx Deep Vein Thrombosis, Hx Myocardial Infarction, Other Cardiovascular Problems/Disorders - pericarditis Denies: Hx Hypercholesterolemia, Hx Hypertension, Hx Peripheral Vascular Disease, Hx Valvular Heart Disease Respiratory History: Reports: Hx Asthma GI History: Reports: Hx Diverticulosis Musculoskeletal History: Reports: Hx Back Problems - degenitive disk disease, ruptured disk., Other Musculoskeletal History - spinal stenosis Sensory History: Reports: Hx Contacts or Glasses Denies: Hx Hearing Aid Opthamlomology History: Reports: Hx Contacts or Glasses Neurological History: Reports: Hx CVA Denies: Hx Headaches, Hx Seizures, Hx Transient Ischemic Attacks (TIA) Psychiatric History: Reports: Hx Anxiety - severe, Hx Post Traumatic Stress Disorder - Surgical History Surgery Procedure, Year, and Place: appendectomy, foot surgery - Immunization History Date of Influenza Vaccine: fall 2016 Infectious Disease History: No Infectious Disease History: Denies: Traveled Outside the [place] in Last 30 Days - Family History Known Family History: Positive: Cardiac Disease, Other - malignant hyperthermia Negative: Respiratory Disease, Seizure Disorder - Social History Alcohol Use: None Hx Substance Use: No Substance Use Type: Reports: None Hx Tobacco Use: Yes Smoking Status (MU): Light Every Day Tobacco Smoker Type: Cigarettes Review of Systems Negative: Fever Positive: Chest Pain Positive: Abdominal Pain, Vomiting, Nausea, Other - constipation All Other Systems Reviewed And Are Negative: Yes Physical Exam - Summary Physical Exam Summary: VITAL SIGNS: Reviewed. GENERAL: Patient is a well-developed and nourished male who is lying comfortable in the stretcher. Patient is not in any acute respiratory distress. HEAD AND FACE: No signs of trauma. No ecchymosis, hematomas or skull depressions. No sinus tenderness. EYES: PERRLA, EOMI x 2, No injected conjunctiva, no nystagmus. EARS: Hearing grossly intact. Ear canals and tympanic membranes are within normal limits. MOUTH: Oropharynx within normal limits. NECK: Supple, trachea is midline, no adenopathy, no JVD, no carotid bruit, no c- spine tenderness, neck with full ROM. CHEST: Symmetric, no tenderness at palpation LUNGS: Clear to auscultation bilaterally. No wheezing or crackles. CVS: Regular rate and rhythm, S1 and S2 present, no murmurs or gallops appreciated. ABDOMEN: Soft with RUQ tenderness. No signs of distention. No rebound no guarding, and no masses palpated. Bowel sounds are normal. EXTREMITIES: FROM in all major joints, no edema, no cyanosis or clubbing. NEURO: Alert and oriented x 3. No acute neurological deficits. Speech is normal and follows commands. SKIN: Dry and warm Triage Information Reviewed: Yes Vital Signs On Initial Exam: Initial Vitals Temp Pulse Resp BP Pulse Ox 98.0 F 117 18 99/82 98 11/16/18 14:05 11/16/18 14:05 11/16/18 14:05 11/16/18 14:05 11/16/18 14:05 Vital Signs Reviewed: Yes Diagnostics - Vital Signs Vital Signs Temp Pulse Resp BP Pulse Ox 11/16/18 14:05 98.0 F 117 18 99/82 98 - Laboratory Result Diagrams: 11/16/18 14:52 11/16/18 14:52 Lab Statement: Any lab studies that have been ordered have been reviewed, and results considered in the medical decision making process. - Radiology CXR Radiology Interpretation Completed By: ED Physician Summary of Radiographic Findings: No acute process. Pending official radiology report. - CT CT abd/pelv CT Interpretation Completed By: Radiologist Summary of CT Findings: No acute CT pathology of the visualized abdomen or pelvis. ED physician has reviewed this report. - Ultrasound No standard instances Ultrasound Interpretation Completed By: Radiologist Summary of Ultrasound Findings: Gallbladder US. No evidence of cholelithiasis or biliary duct dilatation is noted. ED physician has reviewed this report. - EKG 1413 Cardiac Rate: Tachycardia - 117bpm EKG Rhythm: Sinus Tachycardia ST Segment: Normal Ectopy: None EKG Comparison: No Significant Change Summary of EKG Findings: EKG at 1413 shows sinus tachycardia at 117bpm with minimal ST elevations, and T wave depressions in II, III, aVF, v5, and v6, similar to 04/16/18. Abdominal Pain Male Course/Dx - Course Assessment/Plan: This patient is a 43-year-old male who presents to the emergency department via ambulance from [address] [place] [address] with a chief complaint of having right upper quadrant pain for admission to the chest, the right shoulder and the back. Patient reports that the symptoms have been present for the last couple days worsening today. He denies any nausea or vomiting, denies any diarrhea or constipation. Denies any shortness of breath or palpitations. He has past medical history significant for Marfan syndrome, coronary artery disease, CVA, esophagitis, and pulmonary nodule. Blood work shows a wbcs of 14.1, slight anemia, platelet is 143 Potassium level of 2.7, carbon dioxide 21, glucose 166, lactic acid is 4.2. Urinalysis is negative for UTI, 1+ blood. Troponin is 0.00. In the course the patient was given normal saline, and IV potassium for the hypokalemia. Patient was also given magnesium for hypomagnesemia. Right upper quadrant ultrasound impression: No evidence for cholelithiasis or biliary duct dilatation noted. Abdominopelvic CT impression: No acute pathology of the visualized abdomen or pelvis. In the course the patient was given morphine, IV fluids and Zofran for nausea. Approximately 5:30 the patients symptoms have improved. I repeated the lactic acid and is only 1.7. At this point the patient is feeling better, and since other blood tests are negative except for increased liver cyst on the left because it hasnt significantly improved after hydration the patient will be discharged home with follow-up with primary care physician. Patient is hemodynamically stable alert and oriented 3. Plan of care was discussed with the patient and understands and agrees. All questions were answered at patient satisfaction. There were no further complaints or concerns. Lung exam before discharge: CTA B/L. Good air exchange. No wheezing or crackles heard. CVS: S1 and S2 present. No murmurs appreciated. Patient is alert and oriented x 3. Patient is hemodynamically stable. Patient will be discharged home with follow up PCP in the next 2-3 days - Diagnoses Differential Diagnosis/HQI/PQRI: Appendicitis, Bowel Obstruction, Constipation, Diverticulitis, Ureteral Stone, Urinary Tract Infection Provider Diagnoses: Acute abdominal pain Discharge - Sign-Out/Discharge Documenting (check all that apply): Patient Departure Patient Received Moderate/Deep Sedation with Procedure: No - Discharge Plan Condition: Stable Disposition: HOME Referrals: Jeromy BOOGIE,Luis Silverman [Primary Care Provider] - Additional Instructions: Please follow up with your primary care provider within the next 2-3 days. Return to the ED with any new or worsening symptoms. - Billing Disposition and Condition Condition: STABLE Disposition: Home - Attestation Statements Document Initiated by Shengibe: Yes Documenting Scribe: Kellen Pandya Provider For Whom Sancho is Documenting (Include Credential): Thom Barbosa MD. Scribe Attestation: Kellen Villalobos, scribed for Thom Barbosa MD. on 11/16/18 at 2056. Scribe Documentation Reviewed: Yes Provider Attestation: The documentation as recorded by the Kellen montiel accurately reflects the service I personally performed and the decisions made by , Thom Barbosa MD. Status of Scribe Document: Viewed
[2018-11-16 15:02] LABS: ABS Lymphocytes 1.1 10^3/ul (1.0-4.8); ABS Monocytes 1.1 10^3/ul (0-0.8); ABS Neutrophils 11.9 10^3/ul (1.5-7.7); Eosinophil % 0.1 %; Hematocrit 40 % (42-52); Hemoglobin 13.2 g/dL (14.0-18.0); Lymphocyte % 7.5 %; Mean Corpuscular HGB Conc 33 g/dL (31-36); Mean Corpuscular Hemoglobin 30 pg (27-31); Mean Corpuscular Volume 90 fL (80-94); Platelet Count 143 10^3/uL (150-450); Red Blood Count 4.41 10^6 /uL (4.18-5.48); Red Cell Distribution Width 13 % (10.5-15); White Blood Count 14.1 10^3/uL (3.5-10.8)
[2018-11-16 15:22] LABS: ALT 15 U/L (7-52); AST 17 U/L (13-39); Albumin 4.1 g/dL (3.2-5.2); Albumin/Globulin Ratio 1.8 (1-3); Alkaline Phosphatase 59 U/L (34-104); Amylase < 10 U/L (29-103); BUN/Creatinine Ratio 17.9 (8-20); Blood Urea Nitrogen 12 mg/dL (6-24); C Reactive Protein 1.17 mg/L (<8.01); CO2 Carbon Dioxide 21 mmol/L (22-32); Calcium 9.1 mg/dL (8.6-10.3); Chloride 107 mmol/L (101-111); EGFR African American 157.4 (>60); EGFR Non-African American 130.1 (>60); Globulin 2.3 g/dL (2-4); Glucose 166 mg/dL (70-100); Sodium 138 mmol/L (135-145); Total Protein 6.4 g/dL (6.4-8.9)
[2018-11-16 15:25] LABS: Anion Gap 10 mmol/L (2-11); Potassium 2.7 mmol/L (3.5-5.0)
[2018-11-16] MEDS: KCL 10 MEQ/50 ML IVPREMIX* 10 MEQ/50 ML BAG IV SCH ×2 (15:56→17:00)
[2018-11-16 15:57] LABS: Magnesium 1.6 mg/dL (1.9-2.7)
[2018-11-16] MEDS ORDERED: Magnesium Sulfate 1 GM IV* 1 GM/100 ML BAG IV ONE (16:06)
[2018-11-16] MEDS ORDERED: Ketorolac INJ* 30 MG/ML 1 ML VIAL IV PUSH ONE (16:06)
[2018-11-16] MEDS ORDERED: Ondansetron INJ* 2 MG/ML VIAL IV ONE (16:06)
[2018-11-16 16:10] LABS: CKMB ng/mL 1.4 ng/mL (0.6-6.3)
[2018-11-16] MEDS ORDERED: Morphine 4 MG/ML VIAL (1 ml) 4 MG/ML VIAL IV ONE (16:10)
[2018-11-16 16:17] LABS: Urine Appearance Clear; Urine Bacteria Absent (Absent); Urine Bilirubin Negative (Negative); Urine Blood 1+ (Negative); Urine Color Yellow; Urine Glucose Negative (Negative); Urine Ketones Negative (Negative); Urine Nitrite Negative (Negative); Urine Protein Negative (Negative); Urine Red Blood Cell 1+(3-5/hpf) (Absent); Urine Specific Gravity 1.012 (1.010-1.030); Urine Urobilinogen Negative (Negative); Urine White Blood Cell Trace(0-5/hpf) (Absent)
[2018-11-16] MEDS ORDERED: Iodixanol* (CONTRAST) 320 MG/ML 100 ML SDV IV ONE (16:19)
[2018-11-16 16:37] LABS: Creatine Kinase 93 U/L (10-223)
[2018-11-16 20:23] VITALS: BP 125/62
== END 2018-11-16 20:22 | disposition home or self-care (01) ==
LOC: ED 14:01
DX: R10.11 Right upper quadrant pain (principal); R94.31 Abnormal electrocardiogram [ECG] [EKG]; I50.9 Heart failure, unspecified; I25.10 Atherosclerotic heart disease of native coronary artery without angina pectoris; I25.2 Old myocardial infarction; Z86.718 Personal history of other venous thrombosis and embolism; I31.9 Disease of pericardium, unspecified; J45.909 Unspecified asthma, uncomplicated; K57.90 Diverticulosis of intestine, part unspecified, without perforation or abscess without bleeding; M48.00 Spinal stenosis, site unspecified; F41.9 Anxiety disorder, unspecified; F17.210 Nicotine dependence, cigarettes, uncomplicated; Z86.73 Personal history of transient ischemic attack (TIA), and cerebral infarction without residual deficits; Z88.6 Allergy status to analgesic agent; Z88.8 Allergy status to other drugs, medicaments and biological substances; Z91.040 Latex allergy status; Z88.5 Allergy status to narcotic agent; Z88.2 Allergy status to sulfonamides; Z79.51 Long term (current) use of inhaled steroids; Z90.49 Acquired absence of other specified parts of digestive tract
CPT/HCPCS: 36415; 71046; 74177; 76705; 80053; 81003; 81015; 82150; 82550; 82553; 83605; 83690; 83735; 84484; 85025; 86140; 87086; 93005; 96361; 96365; 99283; J2270; J2405; J3475; J3480; Q9967